=== PATIENT | male | born 1950 | race Caucasian/White ===

== ENCOUNTER 2016-03-15 07:00 | Outpatient (CLI) | payer MEDICARE ==
[~2016-03-15 07:00] MED LIST: SODIUM CHLORIDE 0.9% 250 ML in EMPTY BAG 1 BAG IV PRN; SODIUM CHLORIDE 0.9% 500 ML in EMPTY BAG 1 BAG IV PRN
[2016-03-15 07:14] VITALS: RESP 16; TEMP 97.7
[2016-03-15 09:08] VITALS: BP 138/84; PULSE 69
== END 2016-03-15 11:43 | disposition home or self-care (01) ==
LOC: PROCWHC3 07:00
PROVIDERS: ATTEND Physician Assistant
DX: K50.114 Crohn's disease of large intestine with abscess (principal)
CPT/HCPCS: 96361; 96413; 96415; J1745

== ENCOUNTER → 2016-04-22 | Outpatient (CLI) | payer MEDICARE ==
[2016-04-22 08:22] LABS: Basophils # (A) 0.1 k/uL (0-0.2); Basophils % (A) 2 %; CH 31.7; CHCM 34.5; Eosinophils # (A) 0.1 k/uL (0-0.7); Eosinophils % (A) 2 %; HCT 44.3 % (39.0-53.0); HDW 2.73; Luc # (Auto) 0.24; Luc % (Auto) 4; Lymphocytes # (A) 2.3 k/uL (1.0-4.8); Lymphocytes % (A) 40 %; MCH 31.3 pg (25.0-35.0); MCHC 33.8 g/dL (31.0-37.0); MCV 92.6 fL (80.0-100.0); Mean Platelet Volume 7.3; Monocytes # (A) 0.5 k/uL (0-1.0); Monocytes % (A) 9 %; Neutrophils # (A) 2.5 k/uL (1.3-7.7); Neutrophils % (A) 44 %; RBC 4.79 m/uL (4.30-5.90); RDW 13.1 % (11.5-15.5); WBC 5.6 k/uL (3.8-10.6); WBC (Perox) 5.25
[2016-04-22 11:15] LABS: ALT 42 U/L (21-72); AST 23 U/L (17-59); Alkaline Phosphatase 61 U/L (38-126); Anion Gap 10 mmol/L; Blood Urea Nitrogen 19 mg/dL (9-20); Carbon Dioxide 26 mmol/L (22-30); Chloride 108 mmol/L (98-107); Glucose 137 mg/dL (74-99); Non-African American GFR(MDRD) >60 (>60 ml/min/1.73 sqM); Sodium 144 mmol/L (137-145); Total Bilirubin 0.7 mg/dL (0.2-1.3); Total Protein 7.5 g/dL (6.3-8.2)
[2016-04-22 11:17] LABS: Potassium 4.6 mmol/L (3.5-5.1)
[2016-04-22 11:46] LABS: Prostate Specific Antigen 1.63 ng/mL (0.00-4.00)
[2016-04-22 13:56] LABS: Hemoglobin A1C 8.8 % (4.2-6.1)
== END | disposition home or self-care (01) ==
LOC: LABWHC1 07:39
PROVIDERS: ATTEND Family Medicine
DX: E11.65 Type 2 diabetes mellitus with hyperglycemia (principal); Z12.5 Encounter for screening for malignant neoplasm of prostate
CPT/HCPCS: 36415; 80053; 83036; 84153; 85025

== ENCOUNTER → 2016-05-10 | Outpatient (CLI) | payer MEDICARE ==
[2016-05-10 07:30] VITALS: RESP 18; TEMP 98.8
[2016-05-10 09:01] VITALS: BP 158/85; PULSE 75
== END | disposition home or self-care (01) ==
LOC: PROCWHC3 07:02
PROVIDERS: ATTEND Physician Assistant
DX: K50.10 Crohn's disease of large intestine without complications (principal); K50.114 Crohn's disease of large intestine with abscess
CPT/HCPCS: 96361; 96413; 96415; J1745

== ENCOUNTER → 2016-07-21 | Outpatient (CLI) | payer MEDICARE ==
[2016-07-21 08:36] LABS: Basophils % (A) 1 %; CH 31.5; CHCM 34.7; Eosinophils # (A) 0.1 k/uL (0-0.7); Eosinophils % (A) 2 %; HCT 42.9 % (39.0-53.0); HDW 2.73; HGB 14.8 gm/dL (13.0-17.5); Luc # (Auto) 0.19; Luc % (Auto) 4; Lymphocytes % (A) 36 %; MCH 31.5 pg (25.0-35.0); MCHC 34.6 g/dL (31.0-37.0); MCV 91.3 fL (80.0-100.0); Mean Platelet Volume 6.4; Monocytes # (A) 0.5 k/uL (0-1.0); Monocytes % (A) 9 %; Neutrophils # (A) 2.6 k/uL (1.3-7.7); Neutrophils % (A) 48 %; RDW 12.9 % (11.5-15.5); WBC 5.4 k/uL (3.8-10.6); WBC (Perox) 5.03
[2016-07-21 08:40] LABS: ALT 41 U/L (21-72); AST 36 U/L (17-59); Alkaline Phosphatase 65 U/L (38-126); Anion Gap 11 mmol/L; Blood Urea Nitrogen 23 mg/dL (9-20); Carbon Dioxide 23 mmol/L (22-30); Chloride 109 mmol/L (98-107); Glucose 124 mg/dL (74-99); Non-African American GFR(MDRD) >60 (>60 ml/min/1.73 sqM); Potassium 4.4 mmol/L (3.5-5.1); Sodium 143 mmol/L (137-145); Total Protein 8.1 g/dL (6.3-8.2)
[2016-07-21 10:00] LABS: Hemoglobin A1C 8.8 % (4.2-6.1)
== END | disposition home or self-care (01) ==
LOC: LABWHC1 07:31
PROVIDERS: ATTEND Family Medicine
DX: E11.9 Type 2 diabetes mellitus without complications (principal)
CPT/HCPCS: 36415; 80053; 83036; 85025

== ENCOUNTER → 2016-08-09 | Outpatient (CLI) | payer MEDICARE ==
[2016-08-09 07:37] VITALS: TEMP 98
[2016-08-09 09:07] VITALS: BP 148/73; PULSE 67; RESP 18
== END | disposition home or self-care (01) ==
LOC: PROCWHC3 07:10
PROVIDERS: ATTEND Physician Assistant
DX: K50.10 Crohn's disease of large intestine without complications (principal)
CPT/HCPCS: 96413; 96415; J1745

== ENCOUNTER 2016-09-10 06:25 | Emergency (ER) | payer MEDICARE ==
[2016-09-10 06:32] VITALS: RESP 18
[2016-09-10] MEDS ORDERED: KETOROLAC 60 MG/2 ML VIAL IM STA (06:52)
--- NOTE | 2016-09-10 06:53 | ED ---
General Adult HPI - General Chief complaint: Extremity Injury, Upper Stated complaint: Left Should Injury/Rt Foot Pain Time Seen by Provider: 09/10/16 06:42 Source: patient, RN notes reviewed, old records reviewed Mode of arrival: ambulatory Limitations: no limitations - History of Present Illness Initial comments: This is a 66-year-old male in the ER for evaluation. Patient presents here today for evaluation of left shoulder pain. Patient has no significant medical history no prior history of similar pain. Patient is also complaining of right ankle pain. Patient has been evaluated for his right ankle pain as he had a trip and fall earlier in the week, he was following up with orthopedics regarding his ankle has had no imaging. Patient's little boy yesterday revolved a trip and mechanical fall [employer] cucumbers. He has left shoulder pain and certainly drained or decreased range of motion. Patient has taken nothing for pain, he woke up with the pain this morning worse and was last night. No fevers. No shortness of breath. No chest pain. - Related Data Home Medications Medication Instructions Recorded Confirmed INSULIN LISPRO (humaLOG) [humaLOG] 0 unit SQ DIRECTED PRN 07/11/13 09/10/16 Insulin Glargine [Lantus] 35 unit SQ HS 07/11/13 09/10/16 Iron 65 mg PO HS 07/11/13 09/10/16 Omeprazole [PriLOSEC] 20 mg PO QAM 07/11/13 09/10/16 inFLIXimab [Remicade] 100 mg IVPB Q56D 07/11/13 09/10/16 Atorvastatin [Lipitor] 40 mg PO HS 10/28/14 09/10/16 Cholecalciferol [Vitamin D3] 1,000 unit PO DAILY@1200 10/28/14 09/10/16 Clopidogrel [Plavix] 75 mg PO QAM 10/28/14 09/10/16 Lisinopril [Zestril] 5 mg PO QAM 10/28/14 09/10/16 Nystatin 500,000 units PO TID PRN 10/28/14 09/10/16 Mesalamine [Lialda] 1.2 gm PO TID 07/10/15 09/10/16 Previous Rx's Medication Instructions Recorded HYDROcodone/APAP 5-325MG [[place] 1 tab PO Q6HR PRN #30 tab 09/10/16 5325] Allergies Allergy/AdvReac Type Severity Reaction Status Date / Time Penicillins Allergy Severe CAUSED Verified 09/10/16 06:31 SWELLING SENSATION IN MOUTH pioglitazone HCl [From Actos] AdvReac Intermediate Chest Pain Verified 09/10/16 06:31 Review of Systems ROS Statement: Those systems with pertinent positive or pertinent negative responses have been documented in the HPI. ROS Other: All systems not noted in ROS Statement are negative. Past Medical History Past Medical History: Diabetes Mellitus Additional Past Medical History / Comment(s): HX COLITIS AND CROHNS; CA: skin ( basal cell carcinoma); CVA 09/2014 (no residual), shingles History of Any Multi-Drug Resistant Organisms: None Reported Past Surgical History: Hernia Repair Additional Past Surgical History / Comment(s): NUMEROUS COLONOSCOPIES Past Anesthesia/Blood Transfusion Reactions: No Reported Reaction Past Psychological History: No Psychological Hx Reported Smoking Status: Former smoker Past Alcohol Use History: None Reported Past Drug Use History: None Reported - Past Family History Mother Family Medical History: AICD/Pacemaker, Cancer Additional Family Medical History / Comment(s): CA: skin Father Family Medical History: Cancer Brother(s) Family Medical History: Cancer Additional Family Medical History / Comment(s): CA: esophageal General Exam - General Exam Comments Initial Comments: Decreased range of motion left upper extremity Limitations: no limitations General appearance: alert, in no apparent distress Head exam: Present: atraumatic, normocephalic, normal inspection Eye exam: Present: normal appearance, PERRL, EOMI. Absent: scleral icterus, conjunctival injection, periorbital swelling ENT exam: Present: normal exam, mucous membranes moist Neck exam: Present: normal inspection. Absent: tenderness, meningismus, lymphadenopathy Respiratory exam: Present: normal lung sounds bilaterally. Absent: respiratory distress, wheezes, rales, rhonchi, stridor Cardiovascular Exam: Present: regular rate, normal rhythm, normal heart sounds. Absent: systolic murmur, diastolic murmur, rubs, gallop, clicks GI/Abdominal exam: Present: soft, normal bowel sounds. Absent: distended, tenderness, guarding, rebound, rigid Extremities exam: Present: normal inspection, full ROM, normal capillary refill. Absent: tenderness, pedal edema, joint swelling, calf tenderness Back exam: Present: normal inspection Neurological exam: Present: alert, oriented X3, CN II-XII intact Psychiatric exam: Present: normal affect, normal mood Skin exam: Present: warm, dry, intact, normal color. Absent: rash Course Vital Signs 09/10/16 09/10/16 06:27 07:48 Temperature 98.7 F 98 F Pulse Rate 80 66 Respiratory 18 18 Rate Blood Pressure 147/95 149/85 O2 Sat by Pulse 98 97 Oximetry Medical Decision Making - Medical Decision Making Sixes around the ER status post fall with left shoulder pain, chronic right ankle pain. X-rays negative, patient given pain control, follow-up with orthopedics as artery scheduled - Radiology Data Radiology results: report reviewed (Chest x-ray, left shoulder x-ray, right ankle x-ray negative for traumatic injury), image reviewed Disposition Clinical Impression: Left shoulder pain, Fall Disposition: HOME SELF-CARE Condition: Good Instructions: Shoulder Sprain (ED) Prescriptions: HYDROcodone/APAP 5-325MG [[place] 5-325] 1 tab PO Q6HR PRN #30 tab PRN Reason: Pain Referrals: Lance Lopez MD [Primary Care Provider] - 1-2 days
--- NOTE | 2016-09-10 07:11 | XR ---
EXAMINATION TYPE: XR chest 1V DATE OF EXAM: 09/10/2016 COMPARISON: NONE HISTORY: 66-year-old male with pain TECHNIQUE: Single frontal view of the chest is obtained. FINDINGS: The heart is normal size. Mild elongation of the thoracic aorta. Pulmonary vasculature wit hin normal limits. There is rounded retrocardiac density that could represent a moderate-sized hiatal hernia. Otherwise, no consolidation or pleural effusion. IMPRESSION: 1. No acute cardiopulmonary process. 2. Possible moderate sized hiatal hernia.
--- NOTE | 2016-09-10 07:13 | XR ---
EXAMINATION TYPE: 3 views left shoulder. 3 views right ankle. DATE OF EXAM: 09/10/2016 COMPARISON: NONE HISTORY: 66-year-old male with pain after fall couple weeks ago. FINDINGS: Left shoulder: There is moderate degenerative joint space narrowing with marginal spurring, and capsular hypertrophy at the acromioclavicular joint. There is downward sloping of the lateral acromion. No acute fracture , subluxation, or dislocation is identified. Visualized left hemithorax is clear. Right ankle: Ankle mortise is congruent with preservation of the distal tibiofibular overlap. Talar dome is intact . No acute fracture, subluxation, or dislocation. Small delineation to the Achilles tendon. COMBINED IMPRESSION: 1. Left shoulder: Moderate AC joint osteoarthrosis. Downsloping of the lateral acromion may contribut e to subacromial impingement. No acute osseous abnormality seen. 2. Right ankle: No acute osseous abnormality seen.
[2016-09-10 07:49] VITALS: BP 149/85; PULSE 66; TEMP 98
== END 2016-09-10 07:49 | disposition home or self-care (01) ==
LOC: EC 06:25
DX: M25.512 Pain in left shoulder (principal); M25.571 Pain in right ankle and joints of right foot; G89.29 Other chronic pain; E11.9 Type 2 diabetes mellitus without complications; Z85.828 Personal history of other malignant neoplasm of skin; Z87.891 Personal history of nicotine dependence; Z88.0 Allergy status to penicillin; Z88.8 Allergy status to other drugs, medicaments and biological substances; Z79.4 Long term (current) use of insulin; Z79.899 Other long term (current) drug therapy; W01.0XXA Fall on same level from slipping, tripping and stumbling without subsequent striking against object, initial encounter
CPT/HCPCS: 99284; 96372; 71010; 73030; 73610; J1885

== ENCOUNTER → 2016-10-04 | Outpatient (CLI) | payer MEDICARE ==
[2016-10-04 07:49] VITALS: TEMP 97.8
[2016-10-04 09:09] VITALS: BP 125/77; PULSE 68; RESP 14
== END | disposition home or self-care (01) ==
LOC: PROCWHC3 07:07
PROVIDERS: ATTEND Physician Assistant
DX: K50.114 Crohn's disease of large intestine with abscess (principal)
CPT/HCPCS: 96413; 96415; J1745

== ENCOUNTER → 2016-12-20 | Outpatient (CLI) | payer MEDICARE ==
[2016-12-20 09:49] LABS: ALT 43 U/L (21-72); AST 29 U/L (17-59); Alkaline Phosphatase 68 U/L (38-126); Anion Gap 12 mmol/L; Blood Urea Nitrogen 19 mg/dL (9-20); Calcium 9.3 mg/dL (8.4-10.2); Carbon Dioxide 24 mmol/L (22-30); Chloride 107 mmol/L (98-107); Glucose 116 mg/dL (74-99); Non-African American GFR(MDRD) >60 (>60 ml/min/1.73 sqM); Potassium 4.7 mmol/L (3.5-5.1); Sodium 143 mmol/L (137-145); Total Bilirubin 0.6 mg/dL (0.2-1.3)
[2016-12-20 10:03] LABS: Basophils # (A) 0.1 k/uL (0-0.2); Basophils % (A) 1 %; CH 31.6; CHCM 33.6; Eosinophils # (A) 0.1 k/uL (0-0.7); Eosinophils % (A) 2 %; HCT 49.2 % (39.0-53.0); HDW 2.68; HGB 15.9 gm/dL (13.0-17.5); Luc # (Auto) 0.24; Luc % (Auto) 4; Lymphocytes # (A) 2.3 k/uL (1.0-4.8); Lymphocytes % (A) 37 %; MCH 30.6 pg (25.0-35.0); MCHC 32.3 g/dL (31.0-37.0); MCV 94.8 fL (80.0-100.0); Mean Platelet Volume 6.4; Monocytes # (A) 0.5 k/uL (0-1.0); Monocytes % (A) 7 %; Neutrophils # (A) 3.1 k/uL (1.3-7.7); Neutrophils % (A) 50 %; RBC 5.19 m/uL (4.30-5.90); RDW 12.9 % (11.5-15.5); WBC 6.2 k/uL (3.8-10.6); WBC (Perox) 6.19
== END | disposition home or self-care (01) ==
LOC: LABWHC1 08:24
PROVIDERS: ATTEND Physician Assistant
DX: K50.114 Crohn's disease of large intestine with abscess (principal)
CPT/HCPCS: 36415; 80053; 85025

== ENCOUNTER → 2017-06-13 | Outpatient (CLI) | payer MEDICARE ==
[2017-06-13 10:34] LABS: Basophils # (A) 0.1 k/uL (0-0.2); Basophils % (A) 1 %; Eosinophils # (A) 0.1 k/uL (0-0.7); Eosinophils % (A) 2 %; HCT 44.4 % (39.0-53.0); HGB 14.9 gm/dL (13.0-17.5); Lymphocytes # (A) 2.5 k/uL (1.0-4.8); Lymphocytes % (A) 38 %; MCH 30.3 pg (25.0-35.0); MCHC 33.5 g/dL (31.0-37.0); MCV 90.5 fL (80.0-100.0); Mean Platelet Volume 7.2; Monocytes # (A) 0.6 k/uL (0-1.0); Monocytes % (A) 9 %; Neutrophils # (A) 3.1 k/uL (1.3-7.7); Neutrophils % (A) 47 %; Platelet Count 236 k/uL (150-450); RBC 4.91 m/uL (4.30-5.90); WBC 6.5 k/uL (3.8-10.6)
[2017-06-13 11:09] LABS: ALT 36 U/L (21-72); AST 25 U/L (17-59); Albumin 3.9 g/dL (3.5-5.0); Alkaline Phosphatase 62 U/L (38-126); Anion Gap 12 mmol/L; Blood Urea Nitrogen 26 mg/dL (9-20); Calcium 9.2 mg/dL (8.4-10.2); Carbon Dioxide 27 mmol/L (22-30); Chloride 107 mmol/L (98-107); Glucose 162 mg/dL (74-99); Potassium 4.7 mmol/L (3.5-5.1); Sodium 146 mmol/L (137-145); Total Bilirubin 0.7 mg/dL (0.2-1.3); Total Protein 7.6 g/dL (6.3-8.2)
== END | disposition home or self-care (01) ==
LOC: LABWHC1 10:07
PROVIDERS: ATTEND Physician Assistant
DX: K50.10 Crohn's disease of large intestine without complications (principal); K50.114 Crohn's disease of large intestine with abscess
CPT/HCPCS: 36415; 80053; 85025

== ENCOUNTER 2017-07-26 06:33 | Day surgery (SDC) | payer MEDICARE ==
[2017-07-24 13:22] VITALS: BMI 27.8
[~2017-07-26 06:33] MED LIST changes: +LACTATED RINGERS 1,000 ML IV SCH; +LIDOCAINE 1% 20 ML VIAL (10MG/ML) FOR IV START INTRADERMA PRN; -SODIUM CHLORIDE 0.9% 250 ML in EMPTY BAG 1 BAG IV PRN; -SODIUM CHLORIDE 0.9% 500 ML in EMPTY BAG 1 BAG IV PRN
[2017-07-26 07:04] VITALS: TEMP 98.5
[2017-07-26 07:09] LABS: Glucose,Whole Blood 99 mg/dL (75-99)
[2017-07-26] MEDS ORDERED: PROPOFOL 10 MG/ML 20 ML VIAL IV ONE (07:34)
[2017-07-26 07:59] VITALS: BP 107/68; RESP 16
--- NOTE | 2017-07-26 08:01 | P.PCN ---
Date of Procedure: 07/26/17 Procedure(s) Performed: BRIEF HISTORY: Patient is a 66-year-old pleasant, scheduled for an elective colonoscopy as a part of surveillance of long-standing history of Crohn's colitis diagnosed 30 years ago. PROCEDURE PERFORMED: Colonoscopy with random biopsy. PREOPERATIVE DIAGNOSIS: Long-standing history of Crohn's colitis. IV sedation per Anesthesia. PROCEDURE: After informed consent was obtained, the patient, was brought into the endoscopy unit. IV sedation was administered by Anesthesia under continuous monitoring. Digital rectal examination was normal. Initially the Olympus CF- 160 flexible video colonoscope was then inserted in the rectum, gradually advanced into the cecum without any difficulty. Careful examination was performed as the scope was gradually being withdrawn. Ileocecal valve and the appendiceal orifice were visualized and appeared normal. Prep was excellent. Mucosa of the cecum, ascending colon, transverse colon, descending colon, sigmoid colon, and rectum appeared normal. Random biopsies were done from cecum to rectum at every 10 cm intervals to rule out dysplasia. Retroflexion was performed in the rectum and no lesions were seen. The patient tolerated the procedure well. IMPRESSION: Normal-appearing colon from rectum to cecum with no evidence of active colitis or colorectal neoplasia. RECOMMENDATIONS: Findings of this examination were discussed with the patient are less his family. He was advised to follow with the biopsy results. If the biopsies do not show any evidence of dysplasia, he can have a repeat colonoscopy in 2 years.
[2017-07-26 08:03] LABS: Glucose,Whole Blood 94 mg/dL (75-99)
[2017-07-26 08:14] VITALS: PULSE 82
== END 2017-07-26 08:49 | disposition home or self-care (01) ==
LOC: ORWHC2ENDO 06:33
PROVIDERS: ATTEND Internal Medicine Gastroenterology
DX: K50.10 Crohn's disease of large intestine without complications (principal); K21.9 Gastro-esophageal reflux disease without esophagitis; I10 Essential (primary) hypertension; E11.9 Type 2 diabetes mellitus without complications; Z79.4 Long term (current) use of insulin; Z79.02 Long term (current) use of antithrombotics/antiplatelets; Z79.82 Long term (current) use of aspirin; Z79.899 Other long term (current) drug therapy; Z88.0 Allergy status to penicillin; Z88.8 Allergy status to other drugs, medicaments and biological substances
CPT/HCPCS: 88305; 45380; J2704

== ENCOUNTER → 2017-12-20 | Outpatient (CLI) | payer MEDICARE ==
[2017-12-20 14:53] LABS: ALT 41 U/L (21-72); AST 41 U/L (17-59); Albumin 3.7 g/dL (3.5-5.0); Alkaline Phosphatase 55 U/L (38-126); Anion Gap 7 mmol/L; Blood Urea Nitrogen 19 mg/dL (9-20); Calcium 8.8 mg/dL (8.4-10.2); Carbon Dioxide 25 mmol/L (22-30); Chloride 107 mmol/L (98-107); Glucose 106 mg/dL (74-99); Potassium 4.6 mmol/L (3.5-5.1); Sodium 139 mmol/L (137-145); Total Bilirubin 0.7 mg/dL (0.2-1.3); Total Protein 7.4 g/dL (6.3-8.2)
[2017-12-20 15:16] LABS: Basophils % (A) 1 %; Eosinophils # (A) 0.1 k/uL (0-0.7); Eosinophils % (A) 1 %; HGB 13.6 gm/dL (13.0-17.5); Lymphocytes # (A) 2.4 k/uL (1.0-4.8); Lymphocytes % (A) 43 %; MCH 30.4 pg (25.0-35.0); MCHC 32.3 g/dL (31.0-37.0); Mean Platelet Volume 6.3; Monocytes # (A) 0.5 k/uL (0-1.0); Monocytes % (A) 9 %; Neutrophils # (A) 2.3 k/uL (1.3-7.7); Neutrophils % (A) 42 %; Platelet Count 211 k/uL (150-450); RBC 4.47 m/uL (4.30-5.90); RDW 13.3 % (11.5-15.5); WBC 5.6 k/uL (3.8-10.6)
== END | disposition home or self-care (01) ==
LOC: LABWHC1 14:00
PROVIDERS: ATTEND Physician Assistant
DX: K50.114 Crohn's disease of large intestine with abscess (principal)
CPT/HCPCS: 36415; 80053; 85025

== ENCOUNTER 2018-04-16 05:26 | Inpatient (IN) | payer MEDICARE ==
[2018-04-16] MEDS ORDERED: SODIUM CHLORIDE 0.9% 500 ML 500 ML IV STA (06:08)
[2018-04-16] MEDS ORDERED: ACETAMINOPHEN TAB 325 MG TAB PO STA (06:08)
[2018-04-16] MEDS ORDERED: ONDANSETRON 4 MG/2 ML VIAL IVP STA (06:08)
--- NOTE | 2018-04-16 06:11 | ED ---
General Adult HPI - General Source: patient Mode of arrival: wheelchair Limitations: no limitations - History of Present Illness Onset/Timin -: hour(s) Severity scale (1-10): 0 Consistency: constant Improves with: none Worsens with: none Associated Symptoms: cough, fever/chills Treatments Prior to Arrival: none <Mario Conrad - Last Filed: 04/16/18 06:11> <Mushtaq Suh - Last Filed: 04/16/18 11:17> - General Chief complaint: Nausea/Vomiting/Diarrhea Stated complaint: Weakness Time Seen by Provider: 04/16/18 05:39 - History of Present Illness Initial comments: This patient is 67-year-old man who presents to be evaluated for fever and chills. Patient states he was feeling like his usual self when he went to sleep last night. He woke up around 0130 to use the bathroom and noticed that he was feeling cold like a chill. Patient states that he got up again around 4: 30 and again felt like he could not warm up. Patient also had 3-4 bowel movements. He has a history of Crohn's and felt that it may be related to that. Patient denies having any abdominal pain area he did not notice any blood or mucus with the bowel movements. In addition, patient has had a cough with some thick sputum since this morning. (Mario Conrad) - Related Data Home Medications Medication Instructions Recorded Confirmed INSULIN LISPRO (humaLOG) [humaLOG] See Protocol SQ ACHS PRN 07/11/13 04/16/18 Insulin Glargine [Lantus] 35 unit SQ 07/11/13 04/16/18 Iron 65 mg PO 07/11/13 04/16/18 Omeprazole [PriLOSEC] 20 mg PO QAM 07/11/13 04/16/18 inFLIXimab [Remicade] 100 mg IVPB Q56D 07/11/13 04/16/18 Atorvastatin [Lipitor] 40 mg PO 10/28/14 04/16/18 Cholecalciferol [Vitamin D3] 1,000 unit PO DAILY 10/28/14 04/16/18 Clopidogrel [Plavix] 75 mg PO QAM 10/28/14 04/16/18 Lisinopril [Zestril] 10 mg PO QAM 10/28/14 04/16/18 Nystatin 500,000 units PO TID PRN 10/28/14 04/16/18 Mesalamine [Lialda] 1.2 gm PO TID 07/10/15 04/16/18 Aspirin EC [Ecotrin Low Dose] 81 mg PO DAILY 04/16/18 04/16/18 Allergies Allergy/AdvReac Type Severity Reaction Status Date / Time Penicillins Allergy Severe CAUSED Verified 04/16/18 07:09 SWELLING SENSATION IN MOUTH pioglitazone HCl [From Actos] AdvReac Intermediate Chest Pain Verified 04/16/18 07:09 Review of Systems ROS Other: All systems not noted in ROS Statement are negative. Constitutional: Reports: chills ENT: Denies: throat pain, congestion Respiratory: Reports: cough. Denies: dyspnea, wheezes, hemoptysis Cardiovascular: Reports: palpitations. Denies: chest pain, edema, syncope Gastrointestinal: Reports: diarrhea. Denies: abdominal pain, nausea, hematemesis, melena, hematochezia Genitourinary: Denies: dysuria, frequency, hematuria Musculoskeletal: Denies: back pain Skin: Denies: rash Neurological: Denies: headache, weakness, numbness <Mario Conrad - Last Filed: 04/16/18 06:11> ROS Other: All systems not noted in ROS Statement are negative. <Mushtaq Suh - Last Filed: 04/16/18 11:17> ROS Statement: Those systems with pertinent positive or pertinent negative responses have been documented in the HPI. Past Medical History Past Medical History: Cancer, CVA/TIA, Diabetes Mellitus, GERD/Reflux Additional Past Medical History / Comment(s): HX COLITIS AND CROHNS; CA Skin ( basal cell carcinoma); CVA 09/2014 (no residual), HX Shingles. History of Any Multi-Drug Resistant Organisms: None Reported Past Surgical History: Hernia Repair Additional Past Surgical History / Comment(s): NUMEROUS COLONOSCOPIES Past Anesthesia/Blood Transfusion Reactions: No Reported Reaction Past Psychological History: No Psychological Hx Reported Smoking Status: Former smoker Past Alcohol Use History: Rare Past Drug Use History: None Reported - Past Family History Mother Family Medical History: AICD/Pacemaker, Cancer Additional Family Medical History / Comment(s): CA: skin Father Family Medical History: Cancer Brother(s) Family Medical History: Cancer Additional Family Medical History / Comment(s): CA: esophageal <Mario Conrad - Last Filed: 04/16/18 06:11> General Exam Limitations: no limitations General appearance: alert, in no apparent distress Head exam: Present: atraumatic, normocephalic Eye exam: Present: normal appearance. Absent: scleral icterus, conjunctival injection ENT exam: Present: mucous membranes dry Neck exam: Present: normal inspection Respiratory exam: Present: normal lung sounds bilaterally. Absent: respiratory distress, wheezes, rales, rhonchi, stridor Cardiovascular Exam: Present: normal rhythm, tachycardia, normal heart sounds. Absent: systolic murmur, diastolic murmur, rubs, gallop GI/Abdominal exam: Present: soft. Absent: distended, tenderness, guarding, rebound, mass Extremities exam: Present: normal inspection, normal capillary refill. Absent: pedal edema, calf tenderness Back exam: Present: normal inspection. Absent: CVA tenderness (R), CVA tenderness (L) Neurological exam: Present: alert Skin exam: Present: warm, dry, intact, normal color. Absent: rash <Mario Conrad - Last Filed: 04/16/18 06:11> Vital Signs 04/16/18 04/16/18 05:28 08:20 Temperature 103.0 F H 101.6 F H Pulse Rate 113 H 107 H Respiratory 20 18 Rate Blood Pressure 114/87 115/77 O2 Sat by Pulse 94 L 95 Oximetry Medical Decision Making <Mario Conrad - Last Filed: 04/16/18 06:11> - Lab Data Result diagrams: 04/16/18 05:40 04/16/18 05:40 <Mushtaq Suh - Last Filed: 04/16/18 11:17> - Medical Decision Making Patient's care is signed out at shift change, awaiting workup, patient has normal CBC, normal CMP, urinalysis negative for infection, chest x-ray negative for focal pneumonia. Patient is febrile with temperature up to 103, tachycardic , blood culture are pending. CT is obtained of the abdomen shows colitis, no focal infection or drainable abscess. Patient started on Levaquin and Flagyl, will be admitted for IV hydration, further fever workup, and IV antibiotics. Both gastroenterology and infectious disease placed on consult. Case discussed with Dr. Lopez, will admit to [facility] at this time. (Mushtaq Suh) - Lab Data Lab Results 04/16/18 04/16/18 04/16/18 Range/Units 05:40 05:40 05:55 WBC 8.1 (3.8-10.6) k/uL RBC 4.79 (4.30-5.90) m/uL Hgb 14.6 (13.0-17.5) gm/dL Hct 44.2 (39.0-53.0) % MCV 92.4 (80.0-100.0) fL MCH 30.4 (25.0-35.0) pg MCHC 32.9 (31.0-37.0) g/dL RDW 13.0 (11.5-15.5) % Plt Count 213 (150-450) k/uL Neutrophils % 78 % Lymphocytes % 18 % Monocytes % 2 % Eosinophils % 1 % Basophils % 0 % Neutrophils # 6.3 (1.3-7.7) k/uL Lymphocytes # 1.5 (1.0-4.8) k/uL Monocytes # 0.2 (0-1.0) k/uL Eosinophils # 0.1 (0-0.7) k/uL Basophils # 0.0 (0-0.2) k/uL Sodium 140 (137-145) mmol/L Potassium 4.5 (3.5-5.1) mmol/L Chloride 110 H (98-107) mmol/L Carbon Dioxide 23 (22-30) mmol/L Anion Gap 7 mmol/L BUN 23 H (9-20) mg/dL Creatinine 1.02 (0.66-1.25) mg/dL Est GFR (CKD-EPI)AfAm 87 (>60 ml/min/1.73 sqM) Est GFR (CKD-EPI)NonAf 75 (>60 ml/min/1.73 sqM) Glucose 230 H (74-99) mg/dL Plasma Lactic Acid [place] (0.7-2.0) mmol/L Calcium 9.1 (8.4-10.2) mg/dL Total Bilirubin 0.6 (0.2-1.3) mg/dL AST 31 (17-59) U/L ALT 37 (21-72) U/L Alkaline Phosphatase 51 (38-126) U/L Total Protein 7.3 (6.3-8.2) g/dL Albumin 3.7 (3.5-5.0) g/dL Urine Color Urine Appearance (Clear) Urine pH (5.0-8.0) Ur Specific [place] (1.001-1.035) Urine Protein (Negative) Urine Glucose (UA) (Negative) Urine Ketones (Negative) Urine Blood (Negative) Urine Nitrite (Negative) Urine Bilirubin (Negative) Urine Urobilinogen (<2.0) mg/dL Ur Leukocyte Esterase (Negative) Influenza Type A RNA Not Detected (Not Detectd) Influenza Type B (PCR) Not Detected (Not Detectd) 04/16/18 04/16/18 Range/Units 06:40 08:23 WBC (3.8-10.6) k/uL RBC (4.30-5.90) m/uL Hgb (13.0-17.5) gm/dL Hct (39.0-53.0) % MCV (80.0-100.0) fL MCH (25.0-35.0) pg MCHC (31.0-37.0) g/dL RDW (11.5-15.5) % Plt Count (150-450) k/uL Neutrophils % % Lymphocytes % % Monocytes % % Eosinophils % % Basophils % % Neutrophils # (1.3-7.7) k/uL Lymphocytes # (1.0-4.8) k/uL Monocytes # (0-1.0) k/uL Eosinophils # (0-0.7) k/uL Basophils # (0-0.2) k/uL Sodium (137-145) mmol/L Potassium (3.5-5.1) mmol/L Chloride (98-107) mmol/L Carbon Dioxide (22-30) mmol/L Anion Gap mmol/L BUN (9-20) mg/dL Creatinine (0.66-1.25) mg/dL Est GFR (CKD-EPI)AfAm (>60 ml/min/1.73 sqM) Est GFR (CKD-EPI)NonAf (>60 ml/min/1.73 sqM) Glucose (74-99) mg/dL Plasma Lactic Acid [place] 2.0 (0.7-2.0) mmol/L Calcium (8.4-10.2) mg/dL Total Bilirubin (0.2-1.3) mg/dL AST (17-59) U/L ALT (21-72) U/L Alkaline Phosphatase (38-126) U/L Total Protein (6.3-8.2) g/dL Albumin (3.5-5.0) g/dL Urine Color Yellow Urine Appearance Clear (Clear) Urine pH 5.0 (5.0-8.0) Ur Specific [place] 1.012 (1.001-1.035) Urine Protein Negative (Negative) Urine Glucose (UA) 3+ H (Negative) Urine Ketones Negative (Negative) Urine Blood Negative (Negative) Urine Nitrite Negative (Negative) Urine Bilirubin Negative (Negative) Urine Urobilinogen <2.0 (<2.0) mg/dL Ur Leukocyte Esterase Negative (Negative) Influenza Type A RNA (Not Detectd) Influenza Type B (PCR) (Not Detectd) Disposition <Mario Conrad - Last Filed: 04/16/18 06:11> Is patient prescribed a controlled substance at d/c from ED?: No Decision to Admit Reason: Admit from EC Decision Date: 04/16/18 Decision Time: 10:05 <Mushtaq Suh - Last Filed: 04/16/18 11:17> Clinical Impression: Dehydration, Colitis, Fever Disposition: ADMITTED IP TO THIS HOSP Condition: Stable Referrals: Lance Lopez MD [Primary Care Provider] - 1-2 days
[2018-04-16 07:07] LABS: Basophils % (A) 0 %; Eosinophils # (A) 0.1 k/uL (0-0.7); Eosinophils % (A) 1 %; HCT 44.2 % (39.0-53.0); HGB 14.6 gm/dL (13.0-17.5); Lymphocytes # (A) 1.5 k/uL (1.0-4.8); Lymphocytes % (A) 18 %; MCH 30.4 pg (25.0-35.0); MCHC 32.9 g/dL (31.0-37.0); MCV 92.4 fL (80.0-100.0); Mean Platelet Volume 6.5; Monocytes # (A) 0.2 k/uL (0-1.0); Monocytes % (A) 2 %; Neutrophils # (A) 6.3 k/uL (1.3-7.7); Neutrophils % (A) 78 %; Platelet Count 213 k/uL (150-450); RBC 4.79 m/uL (4.30-5.90); WBC 8.1 k/uL (3.8-10.6)
[2018-04-16 07:19] LABS: Albumin 3.7 g/dL (3.5-5.0); Calcium 9.1 mg/dL (8.4-10.2); Potassium 4.5 mmol/L (3.5-5.1); Total Bilirubin 0.6 mg/dL (0.2-1.3); Total Protein 7.3 g/dL (6.3-8.2)
[2018-04-16] MEDS ORDERED: INSULIN REGULAR 100 UNIT/ML VIAL SQ STA (07:28)
--- NOTE | 2018-04-16 07:55 | XR ---
EXAMINATION TYPE: XR chest 2V DATE OF EXAM: 04/16/2018 COMPARISON: 09/10/2016 INDICATION: Pain TECHNIQUE: Frontal and lateral views of the chest are obtained. FINDINGS: The heart size is normal. The pulmonary vasculature is normal. The lungs are clear. Hiatal hernia is present. IMPRESSION: 1. No acute pulmonary process. 2. Hiatal hernia
[2018-04-16 08:43] LABS: Appearance,Urine Clear (Clear); Bilirubin,Urine Negative (Negative); Blood,Urine Negative (Negative); Color,Urine Yellow; Glucose,Urine (UA) 3+ (Negative); Ketones,Urine Negative (Negative); Leukocyte Esterase,Urine Negative (Negative); Nitrite,Urine Negative (Negative); Protein,Urine Negative (Negative); Specific Gravity,Urine 1.012 (1.001-1.035); Urobilinogen,Urine <2.0 mg/dL (<2.0)
--- NOTE | 2018-04-16 10:33 | CT ---
EXAMINATION TYPE: CT abdomen pelvis w con DATE OF EXAM: 04/16/2018 COMPARISON: None HISTORY: Patient complains of nausea, vomiting, and fever. CT DLP: 1027.1 mGycm CONTRAST: CT scan of the abdomen and pelvis is performed without Oral Contrast and with IV Contrast, patient in jected with 1027.1 mL of Isovue 300. FINDINGS: LUNG BASES-: No visible nodule. No infiltrate. There is a large fixed hiatal hernia. LIVER/GB: Noncalcified done cholelithiasis or polyp. No space occupying hepatic lesion. Biliary tr ee is of normal caliber. PANCREAS: No inflammation. No distinct mass. SPLEEN: No splenic enlargement. No lesion seen. ADRENALS: No nodule. No thickening. KIDNEYS/BLADDER: No hydronephrosis. No nephrolithiasis. No distinct renal mass. Urinary bladder g rossly unremarkable. BOWEL: Normal appendix. Wall thickening of the colon extending from the distal transverse colon throu gh the sigmoid colon is felt to reflect colitis. GENITAL ORGANS: No gross abnormality. LYMPH NODES: No greater than 1cm abdominal or pelvic lymph nodes are appreciated. AORTA: No significant abnormality. OSSEOUS STRUCTURES: No significant abnormality is seen. OTHER: No significant additional abnormality is seen. IMPRESSION: 1. Findings felt to reflect nonspecific colitis. Correlate clinically.
[2018-04-16] MEDS ORDERED: metroNIDAZOLE-NS PMX 500 MG in SALINE 1 100ML.BAG IVPB STA (10:39)
[2018-04-16] MEDS ORDERED: LEVOFLOXACIN 500MG-D5W PMX 500 MG in DEXTROSE/WATER 1 100ML.BAG IVPB STA (10:40)
[2018-04-16] MEDS ORDERED: NALOXONE 0.4 MG/ML 1 ML VIAL IV PRN (11:13)
[2018-04-16] MEDS: SODIUM CHLORIDE 0.9% 1,000 ML IV SCH (12:21)
[2018-04-16] MEDS: ACETAMINOPHEN TAB 325 MG TAB PO PRN (14:46)
[2018-04-16] MEDS: BALSALAZIDE DISODIUM 750 MG CAPSULE PO SCH ×2 (17:13→20:16)
[2018-04-16 17:26] LABS: Glucose,Whole Blood 122 mg/dL (75-99)
--- NOTE | 2018-04-16 17:53 | P.HPIM ---
History of Present Illness 67-year-old pleasant gentleman came in with compensative fever chills patient is found to have high-grade fever of 103 patient denied any cough denied any dysuria nausea vomiting chest x-ray did not show dramatic process urease essentially within normal limits patient denied any photophobia headache. Patient had a CAT scan of the abdomen although patient denied any abdominal pain patient's CAT scan did show colitis involving the transverse colon extending up to the sigmoid colon. Patient does have history of Crohn's disease but this picture looks like ulcerative colitis. Patient will be started on treatment for infectious colitis with metronidazole and levofloxacin gastroenterology in the infectious disease was consulted. Review of Systems REVIEW OF SYSTEMS: CONSTITUTIONAL: As mentioned in HPI. HEENT: No recent visual problems or hearing problems. Denied any sore throat. CARDIOVASCULAR: No chest pain, orthopnea, PND, no palpitations, no syncope. PULMONARY: No shortness of breath, no cough, no hemoptysis. GASTROINTESTINAL: No diarrhea, no nausea, no vomiting, no abdominal pain. NEUROLOGICAL: No headaches, no weakness, no numbness. HEMATOLOGICAL: Denies any bleeding or petechiae. GENITOURINARY: Denies any burning micturition, frequency, or urgency. MUSCULOSKELETAL/RHEUMATOLOGICAL: Denies any joint pain, swelling, or any muscle pain. ENDOCRINE: Denies any polyuria or polydipsia. The rest of the 14-point review of systems is negative. Past Medical History Past Medical History: Cancer, CVA/TIA, Diabetes Mellitus, GERD/Reflux, Hyperlipidemia, Rheumatoid Arthritis (RA) Additional Past Medical History / Comment(s): IDDM type II, chron's colitis, benign colon polyps, hiatla hernia, CVA 2014-no residual, anemia History of Any Multi-Drug Resistant Organisms: None Reported Past Surgical History: Hernia Repair Additional Past Surgical History / Comment(s): EGD, numerous colonoscopies, abscess buttock I&D, R inguinal hernia repair, basal cell skin cancer removal. Past Anesthesia/Blood Transfusion Reactions: No Reported Reaction Smoking Status: Former smoker - Past Family History Mother Family Medical History: AICD/Pacemaker, Cancer Additional Family Medical History / Comment(s): CA: skin Father Family Medical History: Cancer Additional Family Medical History / Comment(s): Melanoma Brother(s) Family Medical History: Cancer Additional Family Medical History / Comment(s): CA: esophageal Medications and Allergies Home Medications Medication Instructions Recorded Confirmed Type INSULIN LISPRO (humaLOG) [humaLOG] See Protocol SQ ACHS PRN 07/11/13 04/16/18 History Insulin Glargine [Lantus] 35 unit SQ HS 07/11/13 04/16/18 History Iron 65 mg PO HS 07/11/13 04/16/18 History Omeprazole [PriLOSEC] 20 mg PO QAM 07/11/13 04/16/18 History inFLIXimab [Remicade] 100 mg IVPB Q56D 07/11/13 04/16/18 History Atorvastatin [Lipitor] 40 mg PO HS 10/28/14 04/16/18 History Cholecalciferol [Vitamin D3] 1,000 unit PO DAILY 10/28/14 04/16/18 History Clopidogrel [Plavix] 75 mg PO QAM 10/28/14 04/16/18 History Lisinopril [Zestril] 10 mg PO QAM 10/28/14 04/16/18 History Nystatin 500,000 units PO TID PRN 10/28/14 04/16/18 History Mesalamine [Lialda] 1.2 gm PO TID 07/10/15 04/16/18 History Aspirin EC [Ecotrin Low Dose] 81 mg PO DAILY 04/16/18 04/16/18 History Allergies Allergy/AdvReac Type Severity Reaction Status Date / Time Penicillins Allergy Severe CAUSED Verified 04/16/18 07:09 SWELLING SENSATION IN MOUTH pioglitazone HCl [From Actos] AdvReac Intermediate Chest Pain Verified 04/16/18 07:09 Physical Exam Vitals: Vital Signs Temp Pulse Pulse Resp BP BP Pulse Ox 04/16/18 15:00 97.9 F 82 18 115/61 96 04/16/18 14:47 98.7 F 90 18 97/68 100 04/16/18 11:56 98.7 F 90 18 97/68 100 04/16/18 08:20 101.6 F H 107 H 18 115/77 95 04/16/18 05:28 103.0 F H 113 H 20 114/87 94 L Intake and Output 04/16/18 04/16/18 04/16/18 06:59 14:59 22:59 Intake Total 600 Balance 600 Intake: Oral 600 Other: Weight 89.358 kg PHYSICAL EXAMINATION: GENERAL: The patient is alert and oriented x3, not in any acute distress. Well developed, well nourished. HEENT: Pupils are round and equally reacting to light. EOMI. No scleral icterus. No conjunctival pallor. Normocephalic, atraumatic. No pharyngeal erythema. No thyromegaly. CARDIOVASCULAR: S1 and S2 present. No murmurs, rubs, or gallops. PULMONARY: Chest is clear to auscultation, no wheezing or crackles. ABDOMEN: Soft, nontender, nondistended, normoactive bowel sounds. No palpable organomegaly. MUSCULOSKELETAL: No joint swelling or deformity. EXTREMITIES: No cyanosis, clubbing, or pedal edema. NEUROLOGICAL: Gross neurological examination did not reveal any focal deficits. SKIN: No rashes. Results CBC & Chem 7: 04/16/18 05:40 04/16/18 05:40 Labs: Abnormal Lab Results - Last 24 Hours (Table) 04/16/18 04/16/18 04/16/18 Range/Units 05:40 08:23 17:21 Chloride 110 H (98-107) mmol/L BUN 23 H (9-20) mg/dL Glucose 230 H (74-99) mg/dL POC Glucose (mg/dL) 122 H (75-99) mg/dL Urine Glucose (UA) 3+ H (Negative) Thrombosis Risk Factor Assmnt - Choose All That Apply Any of the Below Risk Factors Present?: Yes Each Factor Represents 1 point: Obesity (BMI >25) Other Risk Factors: Yes Each Risk Factor Represents 2 Points: Age 61-74 years, Malignancy Other congenital or acquired thrombophilia - If yes, enter type in comment: No Thrombosis Risk Factor Assessment Total Risk Factor Score: 5 Thrombosis Risk Factor Assessment Level: High Risk Assessment and Plan Plan: - sepsis probably due to colitis patient rotated for infectious colitis, patient was started on metronidazole and levofloxacin IV fluids. Infectious disease will be consulted patient colitis versus more consistent with ulcerative colitis patient has diagnosis of Crohn's colitis in the past gastroenterology was consulted -History of Crohn's for which patient is on sulfa medications which will be continued type 2 diabetes mellitus Gastroesophageal reflux disease -History of rheumatoid arthritis for which patient receives transfusion of Remicade -Hyperlipidemia For above-mentioned chronic medical problems patient will resume appropriate home medications
[2018-04-16] MEDS: ATORVASTATIN 40 MG TAB PO SCH (20:16)
[2018-04-16 21:25] LABS: Glucose,Whole Blood 127 mg/dL (75-99)
[2018-04-16] MEDS: INSULIN DETEMIR (LEVEMIR) 100 UNIT/ML SYR SQ SCH (22:35)
--- NOTE | 2018-04-16 22:48 | P.CONS ---
History of Present Illness - Reason for Consult Consult date: 04/16/18 Colitis Requesting physician: Jareth Dykes - Chief Complaint Chills - History of Present Illness Pleasant 67-year-old male with a medical history significant for CVA/TIA, diabetes mellitus, GERD/reflux, Crohn's disease, and rheumatoid arthritis who presented to the hospital with complaints of chills. The patient reports that he had been chopping what all day and subsequently felt chilled and presented to the hospital for further evaluation. He has a 20 year history of Crohn's disease complicated by one perianal abscess in the past which was treated with surgical management. He previously required steroid therapy for management of its his disease but reports that over the past 10 years he has been normal controlled with a treatment plan including Remicade therapy and Lialda. He reports that at baseline he has 2 bowel movements daily which are formed and nonbloody with no abdominal pain reported. He denies any change in frequency, consistency or blood per rectum. He feels that his symptoms of chills were likely related to dehydration from over exertion. On presentation to the hospital the patient had a computed tomography scan of the abdomen which showed distal transverse colon thickening which extended to the sigmoid colon. He reports his last colonoscopy was in 2018. Review of Systems REVIEW OF SYSTEMS: CONSTITUTIONAL: Denies any weight change or fatigue but does report chills on presentation. CARDIOVASCULAR: Denies any chest pain, palpitations high or low blood pressures RESPIRATORY: Denies any shortness of breath, hemoptysis or cough. GENITOURINARY: No dysuria or hematuria. MUSCULOSKELETAL: No weakness reported. SKIN: Denies any new rashes or lesions, jaundice or pallor. PSYCHIATRIC: Denies any depression or anxiety. NEUROLOGY: Denies headache, denies any new focal deficits. EARS/NOSE/THROAT: No recent hearing change, congestion, nasal discharge or sore throat. EYES: No pain in eyes, discharge or change in vision. GASTROINTESTINAL: As per HPI. Past Medical History Past Medical History: Cancer, CVA/TIA, Diabetes Mellitus, GERD/Reflux, Hyperlipidemia, Rheumatoid Arthritis (RA) Additional Past Medical History / Comment(s): IDDM type II, chron's colitis, benign colon polyps, hiatla hernia, CVA 2014-no residual, anemia History of Any Multi-Drug Resistant Organisms: None Reported Past Surgical History: Hernia Repair Additional Past Surgical History / Comment(s): EGD, numerous colonoscopies, abscess buttock I&D, R inguinal hernia repair, basal cell skin cancer removal. Past Anesthesia/Blood Transfusion Reactions: No Reported Reaction Smoking Status: Former smoker - Past Family History Mother Family Medical History: AICD/Pacemaker, Cancer Additional Family Medical History / Comment(s): CA: skin Father Family Medical History: Cancer Additional Family Medical History / Comment(s): Melanoma Brother(s) Family Medical History: Cancer Additional Family Medical History / Comment(s): CA: esophageal Medications and Allergies Home Medications Medication Instructions Recorded Confirmed Type INSULIN LISPRO (humaLOG) [humaLOG] See Protocol SQ ACHS PRN 07/11/13 04/16/18 History Insulin Glargine [Lantus] 35 unit SQ HS 07/11/13 04/16/18 History Iron 65 mg PO HS 07/11/13 04/16/18 History Omeprazole [PriLOSEC] 20 mg PO QAM 07/11/13 04/16/18 History inFLIXimab [Remicade] 100 mg IVPB Q56D 07/11/13 04/16/18 History Atorvastatin [Lipitor] 40 mg PO HS 10/28/14 04/16/18 History Cholecalciferol [Vitamin D3] 1,000 unit PO DAILY 10/28/14 04/16/18 History Clopidogrel [Plavix] 75 mg PO QAM 10/28/14 04/16/18 History Lisinopril [Zestril] 10 mg PO QAM 10/28/14 04/16/18 History Nystatin 500,000 units PO TID PRN 10/28/14 04/16/18 History Mesalamine [Lialda] 1.2 gm PO TID 07/10/15 04/16/18 History Aspirin EC [Ecotrin Low Dose] 81 mg PO DAILY 04/16/18 04/16/18 History Allergies Allergy/AdvReac Type Severity Reaction Status Date / Time Penicillins Allergy Severe CAUSED Verified 04/16/18 07:09 SWELLING SENSATION IN MOUTH pioglitazone HCl [From Actos] AdvReac Intermediate Chest Pain Verified 04/16/18 07:09 Physical Exam Vitals: Vital Signs Temp Pulse Pulse Resp BP BP Pulse Ox 04/16/18 15:00 97.9 F 82 18 115/61 96 04/16/18 14:47 98.7 F 90 18 97/68 100 04/16/18 11:56 98.7 F 90 18 97/68 100 04/16/18 08:20 101.6 F H 107 H 18 115/77 95 04/16/18 05:28 103.0 F H 113 H 20 114/87 94 L Intake and Output 04/16/18 04/16/18 04/16/18 06:59 14:59 22:59 Intake Total 600 Balance 600 Intake: Oral 600 Other: Weight 89.358 kg On physical examination, patient appears comfortable in no apparent distress. HEAD: Normocephalic, atraumatic. EYES: No scleral icterus. No conjunctival injection. MOUTH: No lesions, tongue midline. NECK: Trachea midline, no gross abnormalities. CHEST: Clear to auscultation with no wheezing or rhonchi appreciated. HEART: Regular rate and rhythm. ABDOMEN: Soft, obese. Bowel sounds are positive. No organomegaly. No guarding or rigidity. EXTREMITIES: No pedal edema. SKIN: No rashes, no jaundice. NEUROLOGIC: Alert and oriented x3. No focal deficits. Results CBC & Chem 7: 04/16/18 05:40 04/16/18 05:40 Labs: Abnormal Lab Results - Last 24 Hours (Table) 04/16/18 04/16/18 04/16/18 Range/Units 05:40 08:23 17:21 Chloride 110 H (98-107) mmol/L BUN 23 H (9-20) mg/dL Glucose 230 H (74-99) mg/dL POC Glucose (mg/dL) 122 H (75-99) mg/dL Urine Glucose (UA) 3+ H (Negative) 04/16/18 Range/Units 20:40 Chloride (98-107) mmol/L BUN (9-20) mg/dL Glucose (74-99) mg/dL POC Glucose (mg/dL) 127 H (75-99) mg/dL Urine Glucose (UA) (Negative) CT scan - abdomen: report reviewed (computed tomography scan of the abdomen which showed distal transverse colon thickening which extended to the sigmoid colon. ) Assessment and Plan (1) Colitis Narrative/Plan: Patient presenting with chills and found to have thickening extending from the transverse colon to sigmoid on computed tomography scan. The patient denies any signs or symptoms of exacerbation of his underlying Crohn's disease reporting that he is had no blood per rectum, no change in bowel habits or abdominal pain. He feels his symptoms are from over exertion. Differential includes ischemic colitis, infectious colitis or flare of his underlying IBD although this remains less likely. Current Visit: Yes Status: Acute Code(s): K52.9 - NONINFECTIVE GASTROENTERITIS AND COLITIS, UNSPECIFIED SNOMED Code(s): 61558942 (2) Crohn disease Narrative/Plan: 20 year history of Crohn's disease which has been complicated in the past with perianal abscess, however over the past 7 years the patient reports good control on treatment with Remicade and Lialda Current Visit: Yes Status: Acute Code(s): K50.90 - CROHN'S DISEASE, UNSPECIFIED, WITHOUT COMPLICATIONS SNOMED Code(s): 51460739 Plan: Supportive care Liquid diet, advance as tolerated to low fiber ESR and CRP ordered, although based on the patient's symptoms ischemia or infectious etiology of colitis are more likely than a flare of his Crohn's disease EIA for Clostridium difficile has been ordered Continue antibiotic therapy Continue 5ASA age and Patient will need follow-up after discharge with gastroenterology No plan for endoscopic evaluation at this time Thank you for allowing us to participate in the care of the patient we will continue to follow
[2018-04-17] MEDS: metroNIDAZOLE-NS PMX 500 MG in SALINE 1 100ML.BAG IVPB SCH ×4 (02:45→23:32)
[2018-04-17] MEDS: SODIUM CHLORIDE 0.9% 1,000 ML IV SCH ×3 (05:19→23:32)
[2018-04-17 07:13] LABS: Glucose,Whole Blood 53 mg/dL (75-99)
[2018-04-17 07:42] LABS: Glucose,Whole Blood 63 mg/dL (75-99)
--- NOTE | 2018-04-17 07:45 | CONS ---
CONSULTATION DATE OF SERVICE: 04/16/2018 REASON FOR CONSULTATION: Fever and colitis. HISTORY OF PRESENT ILLNESS: The patient is a 67-year-old male with a past medical history significant for Crohn disease, currently on . The patient presenting to the ER at [facility] with rigors and chills that apparently started when the he presented to the hospital. The patient denies having any headache or URI symptoms. The patient denies having any chest pain or shortness of breath or cough. Complaining of the lower abdominal discomfort, more of a dull aching pain that is 4 out of 10. Some nausea but no vomiting and denies having any diarrhea or bleeding per rectum. With these symptoms, the patient was evaluated by the ER physician. On arrival to the ER, the patient did have fever 101.6 degrees Fahrenheit. The patient's white count was slightly elevated. The patient's UA was negative. Influenza serology was negative. Chest x-ray report negative for any pneumonia. The patient did have a CT of the abdomen and pelvis suggestive of a colitis involving the transverse colon to sigmoid colon. Patient treated with Levaquin and Flagyl. Admitted to the hospital and Infectious Disease was consulted for further recommendation regarding antibiotic therapy. REVIEW OF SYSTEMS: Positive points have been mentioned in HPI. Rest of systems been negative. PAST MEDICAL HISTORY: His past medical history of CVA, TIA, diabetes mellitus, gastroesophageal reflux disease, hyperlipidemia, rheumatoid arthritis and Crohn colitis. PAST SURGICAL HISTORY: History of hernia repair, colonoscopy, abscess buttock I and D, right inguinal hernia repair and basal cell skin cancer removal. SOCIAL HISTORY: Remote history of smoking. No drinking or drug use. FAMILY HISTORY: Mother with history of cancer of the skin and heart disease. Father with history of melanoma. ALLERGIES: Allergies to PENICILLIN anaphylaxis and PIOGLITAZONE. MEDICATIONS: Medications include the patient is currently on Tylenol, aspirin, Lipitor, Levaquin, Narcan, Protonix and did received one dose of Levaquin and Flagyl in the ER. PHYSICAL EXAMINATION: On examination, blood pressure 130/67 with a pulse of 84, temperature 98.8, T-max 101.6. He is 96% on room air. General description is an elderly male up in the bed in no distress. No tachypnea or accessory muscle of respiration use. HEENT examination shows no pallor or scleral icterus. Oral mucous membrane is dry. No pharyngeal erythema or thrush. NECK: Trachea central. No thyromegaly. LUNGS: Unlabored breathing, clear to auscultation anteriorly. No wheeze or crackle. HEART: S1, S2. Regular rate and rhythm. ABDOMEN: Soft, minimal tenderness. . No guarding or rigidity. EXTREMITIES: No edema of the feet. SKIN EXAMINATION: No rash or mass palpable. NEUROLOGICAL: Patient is awake, alert, oriented x3. Mood and affect normal. LABS: Hemoglobin 14.6, white count 8.1. BUN of 23, creatinine 1.2. Electrolytes are normal. Liver enzymes are normal. Urine is negative. Influenza serology was negative. Chest x- ray was negative. DIAGNOSTIC IMPRESSION/PLAN: 1. Patient admitted to the hospital with a fever in this patient who did have evidence of colitis from transverse to sigmoid colon with question of possible ischemic colitis. Source is infectious colitis though currently abscess not entirely may be less likely infectious colitis gram negative both aerobes and anaerobes. 2. Patient did have PENICILLIN allergy that limit antibiotics that could be safe to use. PLAN: 1. We will start the patient on Rocephin 2 grams daily and Flagyl 500 every 8 hours. 2. If the patient starts having loose stools, check stool culture as well as stool for C difficile. 3. We will follow up on clinical condition and cultures to further adjust medication if needed. Thank you for this consultation. Will follow this patient along with you. MMODL / IJN: [id number] /
[2018-04-17 07:47] LABS: Glucose,Whole Blood 64 mg/dL (75-99)
[2018-04-17 08:05] LABS: Glucose,Whole Blood 99 mg/dL (75-99)
[2018-04-17] MEDS: PANTOPRAZOLE 40 MG TABLET PO SCH (08:05)
[2018-04-17] MEDS: BALSALAZIDE DISODIUM 750 MG CAPSULE PO SCH ×3 (08:06→20:55)
[2018-04-17] MEDS: ASPIRIN 81 MG PO SCH (08:06)
--- NOTE | 2018-04-17 11:32 | P.PN ---
Subjective Patient resting in bed denies any abdominal pain at this time awaiting the stool sample for C. difficile. Has had consultation with gastroenterology and infectious disease Objective - Vital Signs Vital signs: Vital Signs Temp 99.1 F 04/17/18 06:25 Pulse 84 04/17/18 06:25 Resp 16 04/17/18 06:25 BP 139/62 04/17/18 06:25 Pulse Ox 95 04/17/18 06:25 Intake & Output 04/16/18 04/17/18 04/17/18 18:59 06:59 18:59 Intake Total 600 540 Balance 600 540 Intake: Oral 600 540 Other: # Voids 2 # Bowel Movements 1 - Constitutional General appearance: Present: mild distress - EENT Eyes: Present: PERRLA Ears: bilateral: normal - Neck Neck: Present: normal ROM - Respiratory Respiratory: bilateral: CTA - Cardiovascular Rhythm: regular - Gastrointestinal General gastrointestinal: Present: normal bowel sounds, soft - Integumentary Integumentary: Present: normal - Neurologic Neurologic: Present: CNII-XII intact - Musculoskeletal Musculoskeletal: Present: gait normal - Psychiatric Psychiatric: Present: A&O x's 3, appropriate affect, intact judgment & insight - Labs CBC & Chem 7: 04/16/18 05:40 04/16/18 05:40 Labs: Abnormal Lab Results - Last 24 Hours (Table) 04/16/18 04/16/18 04/17/18 Range/Units 17:21 20:40 07:11 ESR (0-15) mm/hr POC Glucose (mg/dL) 122 H 127 H 53 L (75-99) mg/dL C-Reactive Protein (<10.0) mg/L 04/17/18 04/17/18 04/17/18 Range/Units 07:31 07:33 07:33 ESR 26 H (0-15) mm/hr POC Glucose (mg/dL) 63 L (75-99) mg/dL C-Reactive Protein 161.1 H (<10.0) mg/L 04/17/18 Range/Units 07:46 ESR (0-15) mm/hr POC Glucose (mg/dL) 64 L (75-99) mg/dL C-Reactive Protein (<10.0) mg/L Microbiology - Last 24 Hours (Table) 04/16/18 06:30 Blood Culture - Preliminary Blood No Growth after 24 hours - Imaging and Cardiology Chest x-ray: report reviewed CT scan - abdomen: report reviewed Assessment and Plan Plan: Assessment Sepsis secondary to colitis History of Crohn's Diabetes type 2 GERD History of rheumatoid arthritis on Remicade Hyperlipidemia Plan Continue consultation with gastroenterology and infectious disease
[2018-04-17 11:50] LABS: Glucose,Whole Blood 156 mg/dL (75-99)
[2018-04-17] MEDS: ACETAMINOPHEN TAB 325 MG TAB PO PRN (11:58)
[2018-04-17] MEDS ORDERED: methylPREDNISolone SOD SUCCI 40 MG/ML 1 ML VIAL IV SCH (16:00)
[2018-04-17 17:01] LABS: Glucose,Whole Blood 164 mg/dL (75-99)
[2018-04-17] MEDS ORDERED: IBUPROFEN 600 MG TAB PO PRN (17:21)
[2018-04-17] MEDS: FLUTICASONE 50MCG/SPRAY NASAL 16GM EA NOSTRIL SCH (19:09)
[2018-04-17 20:37] LABS: Glucose,Whole Blood 129 mg/dL (75-99)
[2018-04-17] MEDS: ATORVASTATIN 40 MG TAB PO SCH (20:55)
[2018-04-17] MEDS: INSULIN DETEMIR (LEVEMIR) 100 UNIT/ML SYR SQ SCH (20:55)
[2018-04-17 20:56] VITALS: RESP 18
--- NOTE | 2018-04-17 21:45 | P.PN ---
Subjective Progress Note Date: 04/17/18 Principal diagnosis: Crohn's disease, colitis Patient is lying in bed comfortably, reporting that is tolerating his diet without any abdominal pain. He is having some urgency with bowel movements and loose stool. Objective - Vital Signs Vital signs: Vital Signs Temp 98 F 04/17/18 20:55 Pulse 62 04/17/18 20:55 Resp 18 04/17/18 20:55 BP 109/64 04/17/18 20:55 Pulse Ox 95 04/17/18 20:55 Intake & Output 04/17/18 04/17/18 04/18/18 06:59 18:59 06:59 Intake Total 540 750 Balance 540 750 Intake: Intake, IV Titration 750 Amount Sodium Chloride 0.9% 1, 600 000 ml @ 75 mls/hr IV . [id number] [facility] Rx#:[id number] cefTRIAXone 2 gm In 50 Sodium Chloride 0.9% 50 ml @ 100 mls/hr IVPB Q24HR [facility] Rx#:[id number] metroNIDAZOLE-NS PMX 500 100 mg In Saline 1 100ml.bag @ 100 mls/hr IVPB Q8HR [facility] Rx#:[id number] Oral 540 Other: # Voids 2 # Bowel Movements 1 3 - Exam On physical examination, patient appears comfortable in no apparent distress. HEAD: Normocephalic, atraumatic. EYES: No scleral icterus. No conjunctival injection. MOUTH: No lesions, tongue midline. NECK: Trachea midline, no gross abnormalities. CHEST: Clear to auscultation with no wheezing or rhonchi appreciated. HEART: Regular rate and rhythm. ABDOMEN: Soft, obese. Bowel sounds are positive. No organomegaly. No guarding or rigidity. EXTREMITIES: No pedal edema. SKIN: No rashes, no jaundice. NEUROLOGIC: Alert and oriented x3. No focal deficits. - Labs CBC & Chem 7: 04/16/18 05:40 04/16/18 05:40 Labs: Abnormal Lab Results - Last 24 Hours (Table) 04/17/18 04/17/18 04/17/18 Range/Units 07:11 07:31 07:33 ESR 26 H (0-15) mm/hr POC Glucose (mg/dL) 53 L 63 L (75-99) mg/dL C-Reactive Protein (<10.0) mg/L 04/17/18 04/17/18 04/17/18 Range/Units 07:33 07:46 11:48 ESR (0-15) mm/hr POC Glucose (mg/dL) 64 L 156 H (75-99) mg/dL C-Reactive Protein 161.1 H (<10.0) mg/L 04/17/18 04/17/18 Range/Units 17:00 20:35 ESR (0-15) mm/hr POC Glucose (mg/dL) 164 H 129 H (75-99) mg/dL C-Reactive Protein (<10.0) mg/L Microbiology - Last 24 Hours (Table) 04/16/18 06:30 Blood Culture - Preliminary Blood No Growth after 24 hours Assessment and Plan (1) Colitis Narrative/Plan: Patient presenting with chills and found to have thickening extending from the transverse colon to sigmoid on computed tomography scan. The patient denies any signs or symptoms of exacerbation of his underlying Crohn's disease reporting that he is had no blood per rectum, no change in bowel habits or abdominal pain. He feels his symptoms are from over exertion. Inflammatory markers elevated suggesting flare of patient's underlying IBD. EIA testing for Clostridium difficile was negative. Current Visit: Yes Status: Acute Code(s): K52.9 - NONINFECTIVE GASTROENTERITIS AND COLITIS, UNSPECIFIED SNOMED Code(s): 00877220 (2) Crohn disease Narrative/Plan: 20 year history of Crohn's disease which has been complicated in the past with perianal abscess, however over the past 7 years the patient reports good control on treatment with Remicade and Lialda Current Visit: Yes Status: Acute Code(s): K50.90 - CROHN'S DISEASE, UNSPECIFIED, WITHOUT COMPLICATIONS SNOMED Code(s): 79067224 Plan: Supportive care Low fiber diet ESR and CRP ordered, and found to be elevated EIA for Clostridium difficile negative Continue antibiotic therapy Continue balsalazide Patient started on IV Solu-Medrol, switched to prednisone 40 mg daily by mouth Patient will need follow-up after discharge with gastroenterology No plan for endoscopic evaluation at this time Thank you for allowing us to participate in the care of the patient we will continue to follow
--- NOTE | 2018-04-17 23:27 | PN ---
PROGRESS NOTE DATE OF SERVICE: 04/17/2018. REASON FOR FOLLOW UP: Colitis, question of ischemic versus infectious. INTERVAL HISTORY: The patient did have temperature this afternoon of 100.3. The patient did have a few loose stools today with no blood or mucus. Significant nausea but no vomiting. Denies any chest pain, shortness of breath or cough. PHYSICAL EXAMINATION: Blood pressure 109/64 with a pulse of 82, temperature 98, he is 95% on room air. GENERAL DESCRIPTION: An elderly male lying in bed in no distress. RESPIRATORY SYSTEM: Unlabored breathing. Clear to auscultation anteriorly. HEART: S1, S2. Regular rate and rhythm. ABDOMEN: Soft, no tenderness. LABS: Blood cultures have been negative so far. DIAGNOSTIC IMPRESSION AND PLAN: Patient admitted to the hospital with rigors and chills and did have evidence of colitis involving the colon with concern for possible ischemic versus infectious colitis, with the patient complaining of diarrhea, source has been requested. Keep the patient on Rocephin and Flagyl. Waiting for the culture to finalize. Continue supportive care. MMODL / IJN: [id number] /
[2018-04-18 01:42] LABS: Glucose,Whole Blood 115 mg/dL (75-99)
[2018-04-18 07:10] LABS: Glucose,Whole Blood 63 mg/dL (75-99)
[2018-04-18 07:45] LABS: Glucose,Whole Blood 89 mg/dL (75-99)
[2018-04-18] MEDS: metroNIDAZOLE-NS PMX 500 MG in SALINE 1 100ML.BAG IVPB SCH (08:08)
[2018-04-18] MEDS: ASPIRIN 81 MG PO SCH (08:09)
[2018-04-18] MEDS: BALSALAZIDE DISODIUM 750 MG CAPSULE PO SCH (08:09)
[2018-04-18] MEDS: PANTOPRAZOLE 40 MG TABLET PO SCH (08:09)
[2018-04-18] MEDS: FLUTICASONE 50MCG/SPRAY NASAL 16GM EA NOSTRIL SCH (08:11)
[2018-04-18] MEDS ORDERED: predniSONE 20 MG TAB PO SCH (09:00)
[2018-04-18 11:10] LABS: Glucose,Whole Blood 179 mg/dL (75-99)
--- NOTE | 2018-04-18 11:18 | P.PN ---
Subjective Patient resting in bed without complaint awaiting discharge instructions from gastroenterology and infectious disease. Patient saw stable for discharge Objective - Vital Signs Vital signs: Vital Signs Temp 97.6 F 04/18/18 04:52 Pulse 68 04/18/18 04:52 Resp 18 04/18/18 04:52 BP 108/54 04/18/18 04:52 Pulse Ox 97 04/18/18 04:52 Intake & Output 04/17/18 04/18/18 04/18/18 18:59 06:59 18:59 Intake Total 750 850 Balance 750 850 Intake: Intake, IV Titration 750 850 Amount Sodium Chloride 0.9% 1, 600 750 000 ml @ 75 mls/hr IV . [id number] [facility] Rx#:[id number] cefTRIAXone 2 gm In 50 Sodium Chloride 0.9% 50 ml @ 100 mls/hr IVPB Q24HR [facility] Rx#:[id number] metroNIDAZOLE-NS PMX 500 100 100 mg In Saline 1 100ml.bag @ 100 mls/hr IVPB Q8HR [facility] Rx#:[id number] Other: Voiding Method Toilet # Bowel Movements 3 - Constitutional General appearance: Present: average body habitus - EENT Eyes: Present: PERRLA Ears: bilateral: normal - Neck Neck: Present: normal ROM - Respiratory Respiratory: bilateral: CTA - Cardiovascular Rhythm: regular - Gastrointestinal General gastrointestinal: Present: normal bowel sounds, soft - Neurologic Neurologic: Present: CNII-XII intact - Musculoskeletal Musculoskeletal: Present: gait normal - Psychiatric Psychiatric: Present: A&O x's 3, appropriate affect, intact judgment & insight - Labs CBC & Chem 7: 04/16/18 05:40 04/16/18 05:40 Labs: Abnormal Lab Results - Last 24 Hours (Table) 04/17/18 04/17/18 04/17/18 Range/Units 07:33 11:48 17:00 ESR 26 H (0-15) mm/hr POC Glucose (mg/dL) 156 H 164 H (75-99) mg/dL 04/17/18 04/18/18 04/18/18 Range/Units 20:35 01:41 07:08 ESR (0-15) mm/hr POC Glucose (mg/dL) 129 H 115 H 63 L (75-99) mg/dL 04/18/18 Range/Units 11:09 ESR (0-15) mm/hr POC Glucose (mg/dL) 179 H (75-99) mg/dL Microbiology - Last 24 Hours (Table) 04/16/18 06:30 Blood Culture - Preliminary Blood No Growth after 48 hours Assessment and Plan Plan: Assessment Sepsis secondary colitis History of Crohn's Diabetes type 2 GERD History of rheumatoid arthritis receiving Remicade Hyperlipidemia Plan Patient stable for discharge awaiting recommendations from infectious disease and gastroenterology
[2018-04-18 12:05] VITALS: BP 124/69; PULSE 59; TEMP 97.8
--- NOTE | 2018-04-18 15:45 | PN ---
PROGRESS NOTE DATE OF SERVICE: 04/18/2018 REASON FOR FOLLOWUP: Colitis, question of ischemic versus infectious. INTERVAL HISTORY: The patient is currently afebrile. No rigors or chills. The patient denies having any chest pain. No shortness of breath or cough. His abdominal pain has improved. No nausea, no vomiting. Did have slight diarrhea but no blood in the stools. PHYSICAL EXAMINATION: Blood pressure is 124/69 with a pulse of 59, temperature 97.8. He is 96% on room air. General description is an elderly male up in the bed in no distress. RESPIRATORY SYSTEM: Unlabored breathing. Clear to auscultation anteriorly. HEART: S1, S2. Regular rate and rhythm. ABDOMEN: Soft. No tenderness. LABS: No new labs have been obtained today. Stool for C difficile was negative. Stool culture currently pending. DIAGNOSTIC IMPRESSION AND PLAN: Patient admitted to hospital with a fever in this patient who did have evidence of colitis, question of ischemic versus infectious. Stool studies obtained today; however, the patient is insisting on going home, as he seems to have shown overall clinical improvement on Rocephin and Flagyl. Will finish therapy with oral Ceftin and Flagyl for 10 days. Continue supportive care. MMODL / IJN: [id number] /
[2018-04-18] MEDS ORDERED: metroNIDAZOLE 500 MG TAB PO SCH (16:00)
--- NOTE | 2018-04-19 09:02 | P.DS ---
Providers Date of admission: 04/16/18 11:13 Expected date of discharge: 04/18/18 Attending physician: Lance Lopez Consults: 04/16/18 11:14 Consult Physician Routine Consulting Provider: Roz Quevedo Consult Reason/Comments: fever, colitis Do you want consulting provider notified?: Yes Consult Physician Routine Consulting Provider: Malina Watson Consult Reason/Comments: Colitis, fever Do you want consulting provider notified?: Yes Primary care physician: Lance Lopez Hospital Course: 67-year-old male was admitted through the emergency room with complaints of fever chills fever up to 103. CAT scan revealed colitis. Patient is have history of Crohn's. Patient was evaluated by gastroenterology infectious disease. Patient is stabilize no abdominal pain at this point Assessment sepsis secondary is colitis history of Crohn's diabetes type II history of rheumatoid arthritis with use of brocade hyperlipidemia Plan follow up with family physician Dr. Lance Lopez follow up with the gastroenterology oral Ceftin and Flagyl for 10 days Patient Condition at Discharge: Stable Plan - Discharge Summary Discharge Rx Participant: No New Discharge Prescriptions: New Cefuroxime Axetil [Ceftin] 500 mg PO BID #20 tab metroNIDAZOLE [Flagyl] 500 mg PO Q8HR #30 tab No Action Insulin Glargine [Lantus] 35 unit SQ HS INSULIN LISPRO (humaLOG) [humaLOG] See Protocol SQ ACHS PRN PRN Reason: ELEVATED BLOOD SUGAR inFLIXimab [Remicade] 100 mg IVPB Q56D Iron 65 mg PO HS Omeprazole [PriLOSEC] 20 mg PO QAM Cholecalciferol [Vitamin D3] 1,000 unit PO DAILY Nystatin 500,000 units PO TID PRN PRN Reason: Mouth Infection Lisinopril [Zestril] 10 mg PO QAM Clopidogrel [Plavix] 75 mg PO QAM Atorvastatin [Lipitor] 40 mg PO HS Mesalamine [Lialda] 1.2 gm PO TID Aspirin EC [Ecotrin Low Dose] 81 mg PO DAILY Discharge Medication List INSULIN LISPRO (humaLOG) [humaLOG] See Protocol SQ ACHS PRN 07/11/13 [History] Insulin Glargine [Lantus] 35 unit SQ HS 07/11/13 [History] Iron 65 mg PO HS 07/11/13 [History] Omeprazole [PriLOSEC] 20 mg PO QAM 07/11/13 [History] inFLIXimab [Remicade] 100 mg IVPB Q56D 07/11/13 [History] Atorvastatin [Lipitor] 40 mg PO HS 10/28/14 [History] Cholecalciferol [Vitamin D3] 1,000 unit PO DAILY 10/28/14 [History] Clopidogrel [Plavix] 75 mg PO QAM 10/28/14 [History] Lisinopril [Zestril] 10 mg PO QAM 10/28/14 [History] Nystatin 500,000 units PO TID PRN 10/28/14 [History] Mesalamine [Lialda] 1.2 gm PO TID 07/10/15 [History] Aspirin EC [Ecotrin Low Dose] 81 mg PO DAILY 04/16/18 [History] Cefuroxime Axetil [Ceftin] 500 mg PO BID #20 tab 04/18/18 [Rx] metroNIDAZOLE [Flagyl] 500 mg PO Q8HR #30 tab 04/18/18 [Rx] Follow up Appointment(s)/Referral(s): Lance Lopez MD [Primary Care Provider] - 04/20/18 1:30 pm Malina Watson MD [STAFF PHYSICIAN] - 04/24/18 11:30 am Roz Quevedo MD [STAFF PHYSICIAN] - 04/30/18 9:30 am Patient Instructions/Handouts: Cefuroxime (By mouth), Metronidazole (By mouth) , Crohn Disease (IP), Low Fiber Diet (DC) Activity/Diet/Wound Care/Special Instructions: activity as tolerated low fiber diet Discharge Disposition: HOME SELF-CARE
== END 2018-04-18 16:28 | disposition home or self-care (01) | DRG 872 ==
LOC: EC 05:26 → 3NMEDONC 11:13
PROVIDERS: ADMIT Family Medicine; ATTEND Family Medicine
DX: A41.9 Sepsis, unspecified organism (principal); A09 Infectious gastroenteritis and colitis, unspecified; K50.10 Crohn's disease of large intestine without complications; E11.9 Type 2 diabetes mellitus without complications; E78.5 Hyperlipidemia, unspecified; E86.0 Dehydration; K21.9 Gastro-esophageal reflux disease without esophagitis; M06.9 Rheumatoid arthritis, unspecified; Z79.02 Long term (current) use of antithrombotics/antiplatelets; Z79.4 Long term (current) use of insulin; Z79.82 Long term (current) use of aspirin; Z79.899 Other long term (current) drug therapy; Z80.8 Family history of malignant neoplasm of other organs or systems; Z85.828 Personal history of other malignant neoplasm of skin; Z86.010 Personal history of colon polyps; Z86.73 Personal history of transient ischemic attack (TIA), and cerebral infarction without residual deficits; Z87.891 Personal history of nicotine dependence; Z80.0 Family history of malignant neoplasm of digestive organs; Z82.49 Family history of ischemic heart disease and other diseases of the circulatory system; Z88.0 Allergy status to penicillin; Z88.8 Allergy status to other drugs, medicaments and biological substances
CPT/HCPCS: 36415; 71046; 74177; 80053; 81003; 83605; 85025; 85652; 86140; 87040; 87045; 87046; 87324; 87493; 87502; 96361; 96365; 96367; 96375; 99285

== ENCOUNTER → 2018-06-12 | Outpatient (CLI) | payer MEDICARE ==
[2018-06-12 11:13] LABS: HCT 43.9 % (39.0-53.0); HGB 14.5 gm/dL (13.0-17.5); MCH 30.3 pg (25.0-35.0); MCV 91.8 fL (80.0-100.0); Mean Platelet Volume 6.2; Platelet Count 210 k/uL (150-450); RBC 4.78 m/uL (4.30-5.90); RDW 13.2 % (11.5-15.5); WBC 5.6 k/uL (3.8-10.6)
[2018-06-12 14:59] LABS: Basophils # (M) 0.06 k/uL (0-0.2); Nucleated Red Blood Cells 0 /100 WBC (0-0)
[2018-06-12 15:06] LABS: Eosinophils # (M) 0.22 k/uL (0-0.7); Monocytes # (M) 0.95 k/uL (0-1.0); Neutrophils # (M) 2.18 k/uL (1.3-7.7); Neutrophils % (M) 39 %; Total Cells Counted 200
[2018-06-12 16:42] LABS: Albumin/Globulin Ratio 1.33 (1.60-3.17); Anion Gap 6.8 mmol/L (4.00-12.00); Calcium 9.1 mg/dL (8.7-10.3); Carbon Dioxide 24.2 mmol/L (21.6-31.8); Potassium 4.7 mmol/L (3.5-5.5); Total Bilirubin 0.9 mg/dL (0.3-1.2)
[2018-06-12 17:15] LABS: Hepatitis A Antibody IgM Non-Reactive (Non-Reactive); Hepatitis B Core IgM Non-Reactive (Non-Reactive)
== END | disposition home or self-care (01) ==
LOC: LABWHC1 08:47
PROVIDERS: ATTEND Physician Assistant
DX: K50.114 Crohn's disease of large intestine with abscess (principal)
CPT/HCPCS: 36415; 80053; 80074; 85025

== ENCOUNTER → 2018-12-17 | Outpatient (CLI) | payer MEDICARE ==
[2018-12-17 10:02] LABS: Basophils % (A) 0 %; Eosinophils # (A) 0.1 k/uL (0-0.7); Eosinophils % (A) 1 %; HCT 42.9 % (39.0-53.0); HGB 14.5 gm/dL (13.0-17.5); Lymphocytes # (A) 2.3 k/uL (1.0-4.8); Lymphocytes % (A) 36 %; MCH 31.7 pg (25.0-35.0); MCHC 33.7 g/dL (31.0-37.0); Monocytes # (A) 0.5 k/uL (0-1.0); Monocytes % (A) 7 %; Neutrophils # (A) 3.3 k/uL (1.3-7.7); Neutrophils % (A) 52 %; Platelet Count 224 k/uL (150-450); RBC 4.57 m/uL (4.30-5.90); RDW 12.7 % (11.5-15.5); WBC 6.4 k/uL (3.8-10.6)
[2018-12-17 17:41] LABS: African American GFR (CKD) 88.6 (60.0-200.0); Albumin/Globulin Ratio 1.38 (1.60-3.17); Anion Gap 5.2 mmol/L (4.00-12.00); Calcium 9.1 mg/dL (8.7-10.3); Carbon Dioxide 25.8 mmol/L (21.6-31.8); Globulin 2.9 g/dL (1.6-3.3); Potassium 4.9 mmol/L (3.5-5.5); Total Bilirubin 0.7 mg/dL (0.3-1.2); Total Protein 6.9 g/dL (6.2-8.2)
== END | disposition home or self-care (01) ==
LOC: LABWHC1 09:21
PROVIDERS: ATTEND Physician Assistant
DX: K50.114 Crohn's disease of large intestine with abscess (principal)
CPT/HCPCS: 36415; 80053; 85025

== ENCOUNTER 2019-08-04 10:19 | Emergency (ER) | payer MEDICARE ==
[2019-08-04 10:24] LABS: Glucose,Whole Blood 84 mg/dL (75-99)
[2019-08-04 10:29] VITALS: RESP 18; TEMP 98.7
[2019-08-04 10:41] LABS: Basophils % (A) 1 %; Eosinophils # (A) 0.1 k/uL (0-0.7); Eosinophils % (A) 2 %; HCT 46.3 % (39.0-53.0); HGB 14.6 gm/dL (13.0-17.5); Lymphocytes # (A) 1.7 k/uL (1.0-4.8); Lymphocytes % (A) 32 %; MCHC 31.6 g/dL (31.0-37.0); MCV 94.8 fL (80.0-100.0); Mean Platelet Volume 7.1; Monocytes # (A) 0.4 k/uL (0-1.0); Monocytes % (A) 7 %; Neutrophils % (A) 56 %; Platelet Count 207 k/uL (150-450); RBC 4.88 m/uL (4.30-5.90); RDW 12.7 % (11.5-15.5); WBC 5.4 k/uL (3.8-10.6)
--- NOTE | 2019-08-04 10:50 | ED ---
General Adult HPI - General Source: patient Mode of arrival: ambulatory Limitations: no limitations <Kamran Nascimento - Last Filed: 08/04/19 11:43> <Mushtaq Valencia - Last Filed: 08/04/19 11:53> - General Chief complaint: Recheck/Abnormal Lab/Rx Stated complaint: hypoglycemia Time Seen by Provider: 08/04/19 10:25 - History of Present Illness Initial comments: Patient is a 68-year-old male presents to emergency department with chief complaint of hypoglycemia. His is also present on room to answer questions. States she woke up this morning and noticed the patient had difficulty speaking and could not maintain his balance. States she contacted EMS who brought the patient to the ED. Patient had initial blood glucose level in the 50s. He was given half an ampule of dextrose in the ambulance. In emerg ency department patient had a glucose of 84. States he feels much better already. Patient states he uses prolonged to maintain his sugar levels. States the last night he was working more usual and not eating correctly. Patient has no other complaints at this time. Patient denies nausea, vomiting, diarrhea, headaches, visual changes, one-sided weakness or paresthesias. (Kamran Nascimento) - Related Data Home Medications Medication Instructions Recorded Confirmed INSULIN LISPRO (humaLOG) [humaLOG] See Protocol SQ ACHS PRN 07/11/13 04/16/18 Insulin Glargine [Lantus] 35 unit SQ HS 07/11/13 04/16/18 Iron 65 mg PO HS 07/11/13 04/16/18 Omeprazole [PriLOSEC] 20 mg PO QAM 07/11/13 04/16/18 inFLIXimab [Remicade] 100 mg IVPB Q56D 07/11/13 04/16/18 Atorvastatin [Lipitor] 40 mg PO HS 10/28/14 04/16/18 Cholecalciferol [Vitamin D3] 1,000 unit PO DAILY 10/28/14 04/16/18 Clopidogrel [Plavix] 75 mg PO QAM 10/28/14 04/16/18 Lisinopril [Zestril] 10 mg PO QAM 10/28/14 04/16/18 Nystatin 500,000 units PO TID PRN 10/28/14 04/16/18 Mesalamine [Lialda] 1.2 gm PO TID 07/10/15 04/16/18 Aspirin EC [Ecotrin Low Dose] 81 mg PO DAILY 04/16/18 04/16/18 Previous Rx's Medication Instructions Recorded Cefuroxime Axetil [Ceftin] 500 mg PO BID #20 tab 04/18/18 metroNIDAZOLE [Flagyl] 500 mg PO Q8HR #30 tab 04/18/18 Allergies Allergy/AdvReac Type Severity Reaction Status Date / Time Penicillins Allergy Severe CAUSED Verified 04/16/18 07:09 SWELLING SENSATION IN MOUTH pioglitazone HCl [From Actos] AdvReac Intermediate Chest Pain Verified 04/16/18 07:09 Review of Systems ROS Other: All systems not noted in ROS Statement are negative. <Kamran Nascimento - Last Filed: 08/04/19 11:43> ROS Other: All systems not noted in ROS Statement are negative. <Mushtaq Valencia - Last Filed: 08/04/19 11:53> ROS Statement: Those systems with pertinent positive or pertinent negative responses have been documented in the HPI. Past Medical History Past Medical History: Cancer, CVA/TIA, Diabetes Mellitus, GERD/Reflux, Hyperlipidemia, Rheumatoid Arthritis (RA) Additional Past Medical History / Comment(s): IDDM type II, chron's colitis, benign colon polyps, hiatla hernia, CVA 2014-no residual, anemia History of Any Multi-Drug Resistant Organisms: None Reported Past Surgical History: Hernia Repair Additional Past Surgical History / Comment(s): EGD, numerous colonoscopies, abscess buttock I&D, R inguinal hernia repair, basal cell skin cancer removal. Past Anesthesia/Blood Transfusion Reactions: No Reported Reaction Past Psychological History: No Psychological Hx Reported Smoking Status: Former smoker Past Alcohol Use History: Occasional - Past Family History Mother Family Medical History: AICD/Pacemaker, Cancer Additional Family Medical History / Comment(s): CA: skin Father Family Medical History: Cancer Additional Family Medical History / Comment(s): Melanoma Brother(s) Family Medical History: Cancer Additional Family Medical History / Comment(s): CA: esophageal <Kamran Nascimento - Last Filed: 08/04/19 11:43> General Exam Limitations: no limitations General appearance: alert, in no apparent distress Head exam: Present: atraumatic, normocephalic, normal inspection Eye exam: Present: normal appearance, PERRL, EOMI Pupils: Present: normal accommodation ENT exam: Present: normal exam, normal oropharynx, mucous membranes moist Neck exam: Present: normal inspection, full ROM Respiratory exam: Present: normal lung sounds bilaterally. Absent: respiratory distress, wheezes, rales Cardiovascular Exam: Present: regular rate, normal rhythm, normal heart sounds GI/Abdominal exam: Present: soft. Absent: distended, tenderness, guarding Extremities exam: Present: normal inspection, full ROM Back exam: Present: normal inspection, full ROM Neurological exam: Present: alert, oriented X3 Psychiatric exam: Present: normal affect, normal mood Skin exam: Present: warm, dry, intact, normal color <Kamran Nascimento - Last Filed: 08/04/19 11:43> Course <Mushtaq Valencia - Last Filed: 08/04/19 11:53> Vital Signs 08/04/19 08/04/19 10:21 11:28 Temperature 98.7 F Pulse Rate 52 L 70 Respiratory 18 18 Rate Blood Pressure 163/96 144/78 O2 Sat by Pulse 98 99 Oximetry - Reevaluation(s) Reevaluation #1: 08/04/19 11:52 PA supervision: I personally evaluate this patient. Patient did present with complaints of altered mental status and was found have low blood sugar by paramedics. He was given glucose and did respond appropriately. He was noted be able ambulate without difficulty around the emergency department and was not accessible condition for discharge. He is awake alert oriented upon discharge. I do agree with the assessment and plan (Mushtaq Valencia) EKG Findings - EKG Comments: EKG Findings:: Sinus bradycardia with first-degree AV block. Q waves noted in V3. Similar EKG from 5 years ago. Ventricular rate 56, GA interval 220, QRS 96, QTc 420. <Kamran Nascimento - Last Filed: 08/04/19 11:43> Medical Decision Making - Lab Data Result diagrams: 08/04/19 10:34 08/04/19 10:34 <Kamran Nascimento - Last Filed: 08/04/19 11:43> - Lab Data Result diagrams: 08/04/19 10:34 08/04/19 10:34 <Mushtaq Valencia - Last Filed: 08/04/19 11:53> - Medical Decision Making Patient is a 68-year-old male with type 2 diabetes presenting to emergency Department with the chief complaint of hypoglycemia. Patient brought to the ED via EMS. contacted EMS after she found patient slurring his speech and losing his balance. Patient did do more work in his yard yesterday than usual and did not eat him accordingly. He does take Humalog. Patient had a blood sugar levels in the 50s in the ambulance and was given dextrose. Patient was given food and repeated Accu-Chek reveals a blood glucose level of 105. CBC CMP are unremarkable. Patient states he feels much better and is ready go home. EKG shows Q wave in lead 3 which is also represented an EKG from 5 years ago. Return parameters thoroughly discussed with patient is understanding and agreeable. Case discussed with physician. (Kamran Nascimento) - Lab Data Lab Results 08/04/19 08/04/19 08/04/19 Range/Units 10:23 10:34 10:34 WBC 5.4 (3.8-10.6) k/uL RBC 4.88 (4.30-5.90) m/uL Hgb 14.6 (13.0-17.5) gm/dL Hct 46.3 (39.0-53.0) % MCV 94.8 (80.0-100.0) fL MCH 30.0 (25.0-35.0) pg MCHC 31.6 (31.0-37.0) g/dL RDW 12.7 (11.5-15.5) % Plt Count 207 (150-450) k/uL Neutrophils % 56 % Lymphocytes % 32 % Monocytes % 7 % Eosinophils % 2 % Basophils % 1 % Neutrophils # 3.0 (1.3-7.7) k/uL Lymphocytes # 1.7 (1.0-4.8) k/uL Monocytes # 0.4 (0-1.0) k/uL Eosinophils # 0.1 (0-0.7) k/uL Basophils # 0.0 (0-0.2) k/uL Sodium 141 (137-145) mmol/L Potassium 4.1 (3.5-5.1) mmol/L Chloride 112 H (98-107) mmol/L Carbon Dioxide 20 L (22-30) mmol/L Anion Gap 9 mmol/L BUN 16 (9-20) mg/dL Creatinine 0.68 (0.66-1.25) mg/dL Est GFR (CKD-EPI)AfAm >90 (>60 ml/min/1.73 sqM) Est GFR (CKD-EPI)NonAf >90 (>60 ml/min/1.73 sqM) Glucose 93 (74-99) mg/dL POC Glucose (mg/dL) 84 (75-99) mg/dL POC Glu Sales Person Brynn Duron Calcium 8.2 L (8.4-10.2) mg/dL Total Bilirubin 0.5 (0.2-1.3) mg/dL AST 39 (17-59) U/L ALT 30 (4-49) U/L Alkaline Phosphatase 52 (38-126) U/L Total Protein 7.6 (6.3-8.2) g/dL Albumin 3.8 (3.5-5.0) g/dL 08/04/19 Range/Units 11:08 WBC (3.8-10.6) k/uL RBC (4.30-5.90) m/uL Hgb (13.0-17.5) gm/dL Hct (39.0-53.0) % MCV (80.0-100.0) fL MCH (25.0-35.0) pg MCHC (31.0-37.0) g/dL RDW (11.5-15.5) % Plt Count (150-450) k/uL Neutrophils % % Lymphocytes % % Monocytes % % Eosinophils % % Basophils % % Neutrophils # (1.3-7.7) k/uL Lymphocytes # (1.0-4.8) k/uL Monocytes # (0-1.0) k/uL Eosinophils # (0-0.7) k/uL Basophils # (0-0.2) k/uL Sodium (137-145) mmol/L Potassium (3.5-5.1) mmol/L Chloride (98-107) mmol/L Carbon Dioxide (22-30) mmol/L Anion Gap mmol/L BUN (9-20) mg/dL Creatinine (0.66-1.25) mg/dL Est GFR (CKD-EPI)AfAm (>60 ml/min/1.73 sqM) Est GFR (CKD-EPI)NonAf (>60 ml/min/1.73 sqM) Glucose (74-99) mg/dL POC Glucose (mg/dL) 105 H (75-99) mg/dL POC Glu Sales Person ID Herminia Elizabeth Calcium (8.4-10.2) mg/dL Total Bilirubin (0.2-1.3) mg/dL AST (17-59) U/L ALT (4-49) U/L Alkaline Phosphatase (38-126) U/L Total Protein (6.3-8.2) g/dL Albumin (3.5-5.0) g/dL Disposition Is patient prescribed a controlled substance at d/c from ED?: No Time of Disposition: 11:42 <Kamran Nascimento - Last Filed: 08/04/19 11:43> <Mushtaq Valencia - Last Filed: 08/04/19 11:53> Clinical Impression: Hypoglycemia associated with diabetes Disposition: HOME SELF-CARE Condition: Stable Instructions (If sedation given, give patient instructions): Hypoglycemia in a Person with Diabetes (ED) Additional Instructions: Follow-up with your primary care. Return to emergency department if your symptoms worsen. Patient close attention to your glucose levels. Referrals: Lance Lopez MD [Primary Care Provider] - 1-2 days
[2019-08-04 10:54] LABS: ALT 30 U/L (4-49); AST 39 U/L (17-59); African American GFR (CKD) >90 (>60 ml/min/1.73 sqM); Albumin 3.8 g/dL (3.5-5.0); Alkaline Phosphatase 52 U/L (38-126); Anion Gap 9 mmol/L; Blood Urea Nitrogen 16 mg/dL (9-20); Calcium 8.2 mg/dL (8.4-10.2); Carbon Dioxide 20 mmol/L (22-30); Chloride 112 mmol/L (98-107); Glucose 93 mg/dL (74-99); Non-African American GFR(CKD) >90 (>60 ml/min/1.73 sqM); Potassium 4.1 mmol/L (3.5-5.1); Sodium 141 mmol/L (137-145); Total Bilirubin 0.5 mg/dL (0.2-1.3); Total Protein 7.6 g/dL (6.3-8.2)
[2019-08-04 11:10] LABS: Glucose,Whole Blood 105 mg/dL (75-99)
[2019-08-04 11:31] VITALS: BP 144/78; PULSE 70
== END 2019-08-04 11:51 | disposition home or self-care (01) ==
LOC: EC 10:19
DX: E11.649 Type 2 diabetes mellitus with hypoglycemia without coma (principal); E11.9 Type 2 diabetes mellitus without complications; K21.9 Gastro-esophageal reflux disease without esophagitis; E78.5 Hyperlipidemia, unspecified; Z79.4 Long term (current) use of insulin; Z79.02 Long term (current) use of antithrombotics/antiplatelets; Z79.82 Long term (current) use of aspirin; Z79.899 Other long term (current) drug therapy; Z88.0 Allergy status to penicillin; Z88.8 Allergy status to other drugs, medicaments and biological substances; Z86.73 Personal history of transient ischemic attack (TIA), and cerebral infarction without residual deficits; Z87.891 Personal history of nicotine dependence; Z85.828 Personal history of other malignant neoplasm of skin
CPT/HCPCS: 36415; 80053; 85025; 93005; 99285

== ENCOUNTER 2020-09-16 06:53 | Day surgery (SDC) | payer MEDICARE ==
[2020-09-14 12:05] VITALS: BMI 27.1
[~2020-09-16 06:53] MED LIST changes: +LIDOCAINE 1% (10MG/ML) FOR IV START INTRADERMA PRN; -LIDOCAINE 1% 20 ML VIAL (10MG/ML) FOR IV START INTRADERMA PRN
[2020-09-16 07:12] VITALS: TEMP 98.2
[2020-09-16 07:18] LABS: Glucose,Whole Blood 110 mg/dL (75-99)
[2020-09-16] MEDS ORDERED: PROPOFOL 10 MG/ML 20 ML VIAL IV ONE (07:58)
[2020-09-16] MEDS ORDERED: LIDOCAINE 1% INJ 10MG/ML (20 ML MDV) ONE (07:58)
--- NOTE | 2020-09-16 08:11 | P.PCN ---
Date of Procedure: 09/16/20 Procedure(s) Performed: BRIEF HISTORY: Patient is a 70-year-old pleasant male scheduled for an elective colonoscopy as a part of surveillance of long-standing history of Crohn's colitis diagnosed more than 30 years ago. He continues remains in clinical remission. He is maintained on Remicade infusions every 8 weeks. PROCEDURE PERFORMED: Colonoscopy with random biopsy. PREOPERATIVE DIAGNOSIS: Long-standing history of Crohn's colitis. IV sedation per Anesthesia. PROCEDURE: After informed consent was obtained, the patient, was brought into the endoscopy unit. IV sedation was administered by Anesthesia under continuous monitoring. Digital rectal examination was normal. Initially the Olympus CF-160 flexible video colonoscope was then inserted in the rectum, gradually advanced into the cecum without any difficulty. Careful examination was performed as the scope was gradually being withdrawn. Ileocecal valve and the appendiceal orifice were visualized and appeared normal. Prep was excellent. Mucosa of the cecum, ascending colon, transverse colon, descending colon, sigmoid colon, and rectum appeared normal. Biopsies were done at every 10 cm intervals from rectum to cecum to rule out dysplasia. Retroflexion was performed in the rectum and no lesions were seen. The patient tolerated the procedure well. IMPRESSION: Normal-appearing colon from rectum to cecum no evidence of active colitis or colorectal neoplasia. RECOMMENDATIONS: Findings of this examination were discussed with the patient as well as his family. He was advised to follow with the biopsy results. If the biopsies do not show any evidence of dysplasia, he can have a repeat colonoscopy in 2 years.
[2020-09-16 08:36] VITALS: BP 118/75; PULSE 73; RESP 16
== END 2020-09-16 09:02 | disposition home or self-care (01) ==
LOC: ORWHC2ENDO 06:53
PROVIDERS: ATTEND Internal Medicine Gastroenterology
DX: K50.10 Crohn's disease of large intestine without complications (principal); I10 Essential (primary) hypertension; E78.5 Hyperlipidemia, unspecified; E11.9 Type 2 diabetes mellitus without complications; Z86.73 Personal history of transient ischemic attack (TIA), and cerebral infarction without residual deficits; K21.9 Gastro-esophageal reflux disease without esophagitis; Z97.2 Presence of dental prosthetic device (complete) (partial); Z79.02 Long term (current) use of antithrombotics/antiplatelets; Z79.82 Long term (current) use of aspirin; Z79.4 Long term (current) use of insulin; Z79.899 Other long term (current) drug therapy; Z88.8 Allergy status to other drugs, medicaments and biological substances; Z88.0 Allergy status to penicillin
CPT/HCPCS: 88305; 45380; J2001; J2704

== ENCOUNTER 2022-08-12 09:58 | Day surgery (SDC) | payer MEDICARE ==
[2022-08-09 13:35] VITALS: BMI 24.4
[2022-08-12 10:36] LABS: Glucose,Whole Blood 101 mg/dL (70-110)
[2022-08-12 10:39] VITALS: TEMP 97.1
[2022-08-12] MEDS ORDERED: PROPOFOL 10 MG/ML 20 ML VIAL IV ONE (11:05)
--- NOTE | 2022-08-12 11:19 | P.PCN ---
Date of Procedure: 08/12/22 Procedure(s) Performed: BRIEF HISTORY: Patient is a 71-year-old pleasant white male scheduled for an elective colonoscopy as a part of surveillance of long-standing history of Crohn's colitis diagnosed with years ago. He is maintained on inspection every 8 weeks and remains in clinical remission PROCEDURE PERFORMED: Colonoscopy with random biopsy. PREOPERATIVE DIAGNOSIS: Long-standing history of Crohn's colitis. IV sedation per Anesthesia. PROCEDURE: After informed consent was obtained, the patient, was brought into the endoscopy unit. IV sedation was administered by Anesthesia under continuous monitoring. Digital rectal examination was normal. Initially the Olympus CF-160 flexible video colonoscope was then inserted in the rectum, gradually advanced into the cecum without any difficulty. Careful examination was performed as the scope was gradually being withdrawn. Ileocecal valve and the appendiceal orifice were visualized and appeared normal. Prep was excellent. Mucosa of the cecum, ascending colon, transverse colon, descending colon, sigmoid colon, and rectum appeared normal. Biopsies were done from the cecum to rectum at every 10 cm intervals to rule out dysplasia Retroflexion was performed in the rectum and no lesions were seen. The patient tolerated the procedure well. IMPRESSION: Normal-appearing colon from rectum to cecum with no evidence of active colitis or colorectal neoplasia . RECOMMENDATIONS: Findings of this examination were discussed with the patient as well as his family. He was advised to follow with the biopsy results. If the biopsy is no evidence of dysplasia, he can have a repeat colonoscopy in 2 years..
[2022-08-12 11:27] VITALS: RESP 16
[2022-08-12 11:53] VITALS: BP 122/80; PULSE 64
== END 2022-08-12 12:05 | disposition home or self-care (01) ==
LOC: ORWHC2ENDO 09:58
PROVIDERS: ATTEND Internal Medicine Gastroenterology
DX: K50.10 Crohn's disease of large intestine without complications (principal); I10 Essential (primary) hypertension; E78.5 Hyperlipidemia, unspecified; G40.909 Epilepsy, unspecified, not intractable, without status epilepticus; K21.9 Gastro-esophageal reflux disease without esophagitis; Z87.891 Personal history of nicotine dependence; Z88.0 Allergy status to penicillin; Z88.2 Allergy status to sulfonamides; Z79.899 Other long term (current) drug therapy
CPT/HCPCS: 88305; 45380; J2704

== ENCOUNTER → 2023-03-07 | Outpatient (CLI) | payer MEDICARE ==
[2023-03-07 15:26] LABS: Basophils # (A) 0.04 X 10*3/uL (0.00-0.10); Basophils % (A) 0.8 %; Eosinophils % (A) 1.9 %; HCT 43.3 % (39.6-50.0); HGB 14.4 g/dL (13.0-17.0); Lymphocytes # (A) 1.87 X 10*3/uL (0.90-5.00); Lymphocytes % (A) 35.2 %; MCHC 33.3 g/dL (32.0-37.0); MCV 93.1 FL (80.0-97.0); Mean Platelet Volume 9.4 FL (9.5-12.2); Monocytes # (A) 0.68 X 10*3/uL (0.20-1.00); Monocytes % (A) 12.8 %; NRBC Per 100 WBC 0 X 10*3/uL (0.00-0.01); Neutrophils % (A) 48.9 %; Platelet Count 210 X 10*3/uL (140-440); RBC 4.65 X 10*6/uL (4.40-5.60); RDW 12.8 % (11.5-14.5); WBC 5.31 X 10*3/uL (4.50-10.00)
[2023-03-07 15:31] LABS: ALT 27 U/L (10-49); AST 20 U/L (14-35); Albumin/Globulin Ratio 1.29 Ratio (1.60-3.17); Alkaline Phosphatase 56 U/L (41-126); Blood Urea Nitrogen 22.4 mg/dL (9.0-27.0); Carbon Dioxide 24.4 mmol/L (21.6-31.8); Chloride 103 mmol/L (96-109); Globulin 3.1 g/dL (1.6-3.3); Glucose 247 mg/dL (70-110); Potassium 4.7 mmol/L (3.5-5.5); Sodium 137 mmol/L (135-145); Total Bilirubin 0.4 mg/dL (0.3-1.2); Total Protein 7.1 g/dL (6.2-8.2)
== END | disposition home or self-care (01) ==
LOC: LABWHC1 09:34
PROVIDERS: ATTEND Nurse Practitioner Family
DX: K50.10 Crohn's disease of large intestine without complications (principal)
CPT/HCPCS: 36415; 80053; 85025